=== PATIENT | female | born 1955 | race Caucasian/White ===

== ENCOUNTER 2019-08-30 11:21 | Outpatient (CLI) | payer MEDICARE, OTHER, SELFPAY ==
[2019-08-30 11:40] LABS: Basophils Percent Auto 0.3 % (0.2-1.2); Eosinophils Absolute Auto 0.1 K/mm3 (0-0.3); Eosinophils Percent Auto 0.8 % (0-4.4); Hematocrit 41.3 % (37.0-47.0); Hemoglobin 13.5 g/dL (12.0-15.0); Immature Granulocyte Absolute 0.03 K/mm3 (0.00-0.031); Immature Granulocyte Percent A 0.3 % (0-0.5); Lymphocytes Absolute Auto 1.93 K/mm3 (0.9-3.2); Mean Corpuscular HGB Conc 32.7 g/dl (32-36); Mean Corpuscular Volume 91.8 fl (80-100); Mean Platelet Volume 11.3 fl (7.4-10.4); Monocytes Absolute Auto 0.6 K/mm3 (0.1-0.6); Neutrophils Absolute Auto 6.6 K/mm3 (1.3-6.7); Neutrophils Percent Auto 71.6 % (45.5-73.1); Platelet Count Result 257 k/mm3 (150-375); Red Cell Distribution Width 13.4 % (11.5-14.5); White Blood Count 9.2 K/mm3 (4.5-10.0)
[2019-08-30 12:28] LABS: Alanine Aminotransferase 16 U/L (4-35); Alkaline Phosphatase 74 U/L (38-126); Aspartate Amino Transferase 18 U/L (14-36); Bilirubin,Total 0.2 mg/dL (0.2-1.3); Blood Urea Nitrogen 16 mg/dL (7-17); Carbon Dioxide 26 mmol/L (22-30); Chloride 103 mmol/L (98-107); Estimated Glomerular Filt Rate > 60; Glucose 160 mg/dL (65-105); Sodium 139 mmol/L (137-145)
[2019-09-03 12:27] LABS: CA 27.29 14 U/mL (<38)
== END 2019-08-30 11:22 | disposition home or self-care (01) ==
PROVIDERS: Visit Provider Internal Medicine Hematology & Oncology
DX: C50.912 Malignant neoplasm of unspecified site of left female breast (principal); Z17.0 Estrogen receptor positive status [ER+]
CPT/HCPCS: 36415; 80053; 85025; 86300

== ENCOUNTER 2020-02-28 11:59 | Outpatient (CLI) | payer MEDICARE, OTHER, SELFPAY ==
[2020-02-28 12:25] LABS: Basophils Percent Auto 0.3 % (0.2-1.2); Eosinophils Absolute Auto 0.1 K/mm3 (0-0.3); Eosinophils Percent Auto 0.7 % (0-4.4); Hematocrit 42.4 % (37.0-47.0); Immature Granulocyte Absolute 0.02 K/mm3 (0.00-0.031); Immature Granulocyte Percent A 0.2 % (0-0.5); Lymphocytes Percent Auto 23.4 % (18.3-44.2); Mean Corpuscular Hemoglobin 30.1 pg (26-34); Mean Corpuscular Volume 91.2 fl (80-100); Mean Platelet Volume 11.7 fl (7.4-10.4); Monocytes Absolute Auto 0.5 K/mm3 (0.1-0.6); Monocytes Percent Auto 5.3 % (2.6-8.5); Neutrophils Absolute Auto 6.6 K/mm3 (1.3-6.7); Neutrophils Percent Auto 70.1 % (45.5-73.1); Platelet Count Result 256 k/mm3 (150-375); Red Blood Count 4.65 M/mm3 (4.2-5.4); Red Cell Distribution Width 12.8 % (11.5-14.5); White Blood Count 9.4 K/mm3 (4.5-10.0)
[2020-02-28 15:20] LABS: Alanine Aminotransferase 18 U/L (4-35); Albumin Level 4.3 g/dL (3.5-5.1); Alkaline Phosphatase 65 U/L (38-126); Anion Gap 9 mmol/L (8-16); Aspartate Amino Transferase 23 U/L (14-36); Bilirubin,Total 0.5 mg/dL (0.2-1.3); Blood Urea Nitrogen 21 mg/dL (7-17); Calcium 9.7 mg/dL (8.4-10.2); Carbon Dioxide 31 mmol/L (22-30); Chloride 97 mmol/L (98-107); Estimated Glomerular Filt Rate > 60; Glucose 112 mg/dL (65-105); Potassium 4.1 mmol/L (3.4-5.0); Sodium 137 mmol/L (137-145)
[2020-03-04 13:45] LABS: CA 27.29 17 U/mL (<38)
== END 2020-02-28 12:00 | disposition home or self-care (01) ==
LOC: ANHLAB 12:02
PROVIDERS: PCP Obstetrics & Gynecology; Visit Provider Internal Medicine Hematology & Oncology
DX: C50.212 Malignant neoplasm of upper-inner quadrant of left female breast (principal)
CPT/HCPCS: 36415; 80053; 85025; 86300

== ENCOUNTER 2020-09-02 09:24 | Outpatient (CLI) | payer MEDICARE, OTHER, SELFPAY ==
[2020-09-02 09:45] LABS: Basophils Percent Auto 0.2 % (0.2-1.2); Eosinophils Absolute Auto 0.1 K/mm3 (0-0.3); Eosinophils Percent Auto 0.7 % (0-4.4); Hematocrit 39.8 % (37.0-47.0); Hemoglobin 13.1 g/dL (12.0-15.0); Immature Granulocyte Absolute 0.04 K/mm3 (0.00-0.031); Immature Granulocyte Percent A 0.5 % (0-0.5); Lymphocytes Absolute Auto 1.27 K/mm3 (0.9-3.2); Lymphocytes Percent Auto 15.4 % (18.3-44.2); Mean Corpuscular HGB Conc 32.9 g/dl (32-36); Mean Corpuscular Hemoglobin 30.2 pg (26-34); Mean Corpuscular Volume 91.7 fl (80-100); Mean Platelet Volume 11.7 fl (7.4-10.4); Monocytes Absolute Auto 0.5 K/mm3 (0.1-0.6); Monocytes Percent Auto 6.2 % (2.6-8.5); Neutrophils Absolute Auto 6.4 K/mm3 (1.3-6.7); Platelet Count Result 249 k/mm3 (150-375); Red Blood Count 4.34 M/mm3 (4.2-5.4); Red Cell Distribution Width 13.1 % (11.5-14.5); White Blood Count 8.3 K/mm3 (4.5-10.0)
[2020-09-02 09:49] LABS: Blood Urea Nitrogen 19 mg/dL (8-26); Carbon Dioxide 29 mmol/L (22-30); Chloride 100 mmol/L (98-109); Estimated Glomerular Filt Rate 45; Glucose 128 mg/dL (70-105); Potassium 3.8 mmol/L (3.5-4.9); Sodium 143 mmol/L (138-146)
[2020-09-02 12:22] LABS: Alanine Aminotransferase 17 U/L (4-35); Albumin Level 4.1 g/dL (3.5-5.1); Alkaline Phosphatase 59 U/L (38-126); Anion Gap 9 mmol/L (8-16); Aspartate Amino Transferase 19 U/L (14-36); Bilirubin,Total 0.4 mg/dL (0.2-1.3); Blood Urea Nitrogen 19 mg/dL (7-17); Calcium 10.1 mg/dL (8.4-10.2); Carbon Dioxide 29 mmol/L (22-30); Chloride 101 mmol/L (98-107); Estimated Glomerular Filt Rate 50; Glucose 124 mg/dL (65-105); Sodium 139 mmol/L (137-145)
[2020-09-09 08:56] LABS: CA 15-3 7 U/mL (<32)
== END 2020-09-02 09:25 | disposition home or self-care (01) ==
LOC: ANHLAB 09:30
PROVIDERS: Visit Provider Internal Medicine Hematology & Oncology
DX: C50.212 Malignant neoplasm of upper-inner quadrant of left female breast (principal)
CPT/HCPCS: 36415; 80048; 80053; 85025; 86300

== ENCOUNTER 2021-02-24 09:51 | Outpatient (CLI) | payer MEDICARE, OTHER, SELFPAY ==
[2021-02-24 10:23] LABS: Basophils Percent Auto 0.2 % (0.2-1.2); Eosinophils Absolute Auto 0.1 K/mm3 (0-0.3); Eosinophils Percent Auto 0.9 % (0-4.4); Hematocrit 37.7 % (37.0-47.0); Hemoglobin 12.1 g/dL (12.0-15.0); Immature Granulocyte Absolute 0.02 K/mm3 (0.00-0.031); Immature Granulocyte Percent A 0.2 % (0-0.5); Lymphocytes Absolute Auto 1.63 K/mm3 (0.9-3.2); Lymphocytes Percent Auto 19.2 % (18.3-44.2); Mean Corpuscular HGB Conc 32.1 g/dl (32-36); Mean Corpuscular Hemoglobin 30.3 pg (26-34); Mean Corpuscular Volume 94.5 fl (80-100); Mean Platelet Volume 11.7 fl (7.4-10.4); Monocytes Absolute Auto 0.5 K/mm3 (0.1-0.6); Monocytes Percent Auto 5.9 % (2.6-8.5); Neutrophils Absolute Auto 6.2 K/mm3 (1.3-6.7); Neutrophils Percent Auto 73.6 % (45.5-73.1); Platelet Count Result 257 k/mm3 (150-375); Red Blood Count 3.99 M/mm3 (4.2-5.4); Red Cell Distribution Width 12.7 % (11.5-14.5); White Blood Count 8.5 K/mm3 (4.5-10.0)
[2021-02-24 11:12] LABS: Alanine Aminotransferase 20 U/L (4-35); Albumin Level 4.1 g/dL (3.5-5.1); Alkaline Phosphatase 52 U/L (38-126); Anion Gap 12 mmol/L (8-16); Aspartate Amino Transferase 26 U/L (14-36); Bilirubin,Total 0.4 mg/dL (0.2-1.3); Blood Urea Nitrogen 16 mg/dL (7-17); Calcium 8.8 mg/dL (8.4-10.2); Carbon Dioxide 27 mmol/L (22-30); Chloride 100 mmol/L (98-107); Estimated Glomerular Filt Rate > 60; Glucose 122 mg/dL (65-110); Sodium 139 mmol/L (137-145)
[2021-02-27 15:13] LABS: CA 15-3 6 U/mL (<32)
== END 2021-02-24 09:52 | disposition home or self-care (01) ==
LOC: ANHLAB 09:54
PROVIDERS: Visit Provider Internal Medicine Hematology & Oncology
DX: R79.89 Other specified abnormal findings of blood chemistry (principal); C50.212 Malignant neoplasm of upper-inner quadrant of left female breast; Z17.0 Estrogen receptor positive status [ER+]
CPT/HCPCS: 36415; 80053; 84443; 85025; 86300

== ENCOUNTER 2021-10-18 11:57 | Outpatient (CLI) | payer MEDICARE, OTHER, SELFPAY ==
[2021-10-18 12:18] LABS: Basophils Percent Auto 0.3 % (0.2-1.2); Eosinophils Absolute Auto 0.1 K/mm3 (0-0.3); Eosinophils Percent Auto 1.1 % (0-4.4); Hematocrit 37.9 % (37.0-47.0); Hemoglobin 12.4 g/dL (12.0-15.0); Immature Granulocyte Absolute 0.03 K/mm3 (0.00-0.031); Immature Granulocyte Percent A 0.3 % (0-0.5); Lymphocytes Absolute Auto 2.02 K/mm3 (0.9-3.2); Lymphocytes Percent Auto 20.3 % (18.3-44.2); Mean Corpuscular HGB Conc 32.7 g/dl (32-36); Mean Corpuscular Hemoglobin 29.9 pg (26-34); Mean Corpuscular Volume 91.3 fl (80-100); Mean Platelet Volume 11.1 fl (7.4-10.4); Monocytes Absolute Auto 0.6 K/mm3 (0.1-0.6); Monocytes Percent Auto 6.4 % (2.6-8.5); Neutrophils Absolute Auto 7.1 K/mm3 (1.3-6.7); Neutrophils Percent Auto 71.6 % (45.5-73.1); Platelet Count Result 212 k/mm3 (150-375); Red Blood Count 4.15 M/mm3 (4.2-5.4); Red Cell Distribution Width 12.5 % (11.5-14.5)
[2021-10-18 14:37] LABS: Alanine Aminotransferase 17 U/L (6-35); Albumin Level 4.4 g/dL (3.5-5.1); Alkaline Phosphatase 52 U/L (38-126); Anion Gap 13 mmol/L (8-16); Aspartate Amino Transferase 20 U/L (14-36); Bilirubin,Total 0.4 mg/dL (0.2-1.3); Blood Urea Nitrogen 23 mg/dL (7-17); Calcium 8.9 mg/dL (8.4-10.2); Carbon Dioxide 31 mmol/L (22-30); Chloride 93 mmol/L (98-107); Estimated Glomerular Filt Rate 50; Glucose 108 mg/dL (65-110); Potassium 3.8 mmol/L (3.4-5.0); Sodium 137 mmol/L (137-145)
[2021-10-23 06:35] LABS: CA 15-3 8 U/mL (<32)
== END 2021-10-18 11:58 | disposition home or self-care (01) ==
LOC: ANHLAB 12:00
PROVIDERS: Visit Provider Internal Medicine Hematology & Oncology
DX: I50.32 Chronic diastolic (congestive) heart failure (principal); I48.0 Paroxysmal atrial fibrillation; I10 Essential (primary) hypertension; E78.2 Mixed hyperlipidemia; C50.212 Malignant neoplasm of upper-inner quadrant of left female breast
CPT/HCPCS: 36415; 80053; 85025; 86300

== ENCOUNTER 2022-08-31 10:30 | Outpatient (CLI) | payer MEDICARE, OTHER, SELFPAY ==
[2022-08-31 10:45] LABS: Basophils Percent Auto 0.5 % (0.2-1.2); Eosinophils Absolute Auto 0.2 K/mm3 (0-0.3); Eosinophils Percent Auto 2.9 % (0-4.4); Hematocrit 38.4 % (37.0-47.0); Hemoglobin 12.3 g/dL (12.0-15.0); Immature Granulocyte Absolute 0.01 K/mm3 (0.00-0.031); Immature Granulocyte Percent A 0.1 % (0-0.5); Lymphocytes Absolute Auto 2.23 K/mm3 (0.9-3.2); Lymphocytes Percent Auto 30.5 % (18.3-44.2); Mean Corpuscular Hemoglobin 29.9 pg (26-34); Mean Corpuscular Volume 93.4 fl (80-100); Mean Platelet Volume 10.9 fl (7.4-10.4); Monocytes Absolute Auto 0.5 K/mm3 (0.1-0.6); Monocytes Percent Auto 6.6 % (2.6-8.5); Neutrophils Absolute Auto 4.4 K/mm3 (1.3-6.7); Neutrophils Percent Auto 59.4 % (45.5-73.1); Platelet Count Result 232 k/mm3 (150-375); Red Blood Count 4.11 M/mm3 (4.2-5.4); Red Cell Distribution Width 12.6 % (11.5-14.5); White Blood Count 7.3 K/mm3 (4.5-10.0)
[2022-08-31 14:41] LABS: Alanine Aminotransferase 20 U/L (6-35); Alkaline Phosphatase 45 U/L (38-126); Anion Gap 4 mmol/L (8-16); Aspartate Amino Transferase 21 U/L (14-36); Bilirubin,Total 0.3 mg/dL (0.2-1.3); Blood Urea Nitrogen 20 mg/dL (7-17); Calcium 8.4 mg/dL (8.4-10.2); Carbon Dioxide 35 mmol/L (22-30); Chloride 98 mmol/L (98-107); Estimated Glomerular Filt Rate 55; Glucose 103 mg/dL (65-110); Potassium 4.1 mmol/L (3.4-5.0); Sodium 137 mmol/L (137-145)
[2022-09-03 05:56] LABS: CA 15-3 6 U/mL (<32)
== END 2022-08-31 10:31 | disposition home or self-care (01) ==
LOC: ANHLAB 10:32
PROVIDERS: Visit Provider Internal Medicine Hematology & Oncology
DX: C50.212 Malignant neoplasm of upper-inner quadrant of left female breast (principal)
CPT/HCPCS: 36415; 80053; 85025; 86300

== ENCOUNTER 2023-09-04 10:52 | Outpatient (RCR) | payer MEDICARE, OTHER, SELFPAY ==
[2023-09-04 11:09] LABS: Basophils Percent Auto 0.7 % (0.2-1.2); Eosinophils Percent Auto 0.7 % (0-4.4); Hematocrit 39.3 % (37.0-47.0); Hemoglobin 12.5 g/dL (12.0-15.0); Immature Granulocyte Absolute 0.01 K/mm3 (0.00-0.031); Immature Granulocyte Percent A 0.2 % (0-0.5); Lymphocytes Absolute Auto 1.79 K/mm3 (0.9-3.2); Lymphocytes Percent Auto 29.5 % (18.3-44.2); Mean Corpuscular HGB Conc 31.8 g/dl (32-36); Mean Corpuscular Hemoglobin 28.7 pg (26-34); Mean Corpuscular Volume 90.1 fl (80-100); Mean Platelet Volume 11.7 fl (7.4-10.4); Monocytes Absolute Auto 0.4 K/mm3 (0.1-0.6); Monocytes Percent Auto 7.1 % (2.6-8.5); Neutrophils Absolute Auto 3.8 K/mm3 (1.3-6.7); Neutrophils Percent Auto 61.8 % (45.5-73.1); Platelet Count Result 249 k/mm3 (150-375); Red Blood Count 4.36 M/mm3 (4.2-5.4); Red Cell Distribution Width 13.3 % (11.5-14.5); White Blood Count 6.1 K/mm3 (4.5-10.0)
[2023-09-04 12:17] LABS: Alanine Aminotransferase 26 U/L (6-35); Albumin Level 4.6 g/dL (3.5-5.1); Alkaline Phosphatase 88 U/L (38-126); Anion Gap 12 mmol/L (4-12); Aspartate Amino Transferase 31 U/L (14-36); Bilirubin,Total 0.7 mg/dL (0.2-1.3); Blood Urea Nitrogen 16 mg/dL (7-17); Calcium 9.4 mg/dL (8.4-10.2); Carbon Dioxide 30 mmol/L (22-30); Chloride 94 mmol/L (98-107); Estimated Glomerular Filt Rate > 60; Glucose 114 mg/dL (65-110); Potassium 3.9 mmol/L (3.4-5.0); Sodium 136 mmol/L (137-145)
[2023-09-06 14:58] LABS: CA 15-3 9 U/mL (<32)
== END 2023-12-03 23:59 | disposition home or self-care (01) ==
LOC: ANHLAB 10:52
PROVIDERS: PCP Family Medicine; Visit Provider Internal Medicine Hematology & Oncology
DX: C50.212 Malignant neoplasm of upper-inner quadrant of left female breast (principal)
CPT/HCPCS: 36415; 80053; 85025; 86300

== ENCOUNTER 2024-09-04 09:59 | Outpatient (CLI) | payer MEDICARE, OTHER, SELFPAY ==
--- OUTSIDE RECORDS SUMMARY | 2024-09-04 10:11 | XMS_ITS | Referral Summary ---
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 Name Role Phone Pavan Dooley MD Primary Care Provider [phone] Lita Whitlock MD Unavailable [phone] Abhay Garcia DPM Unavailable [phone] Juan Dumont MD Unavailable [phone] Encounters Date Type Department Care Team Description 06/28/2024 Telephone [facility] Medical [facility] Family Medicine at [address] [place] [address] Pavan Dooley MD Labs Only 06/26/2024 Results Follow-Up [facility] Family Medicine at [address] [place] [phone] Pavan Dooley MD TSH, Comprehensive metabolic panel, CBC with auto differential, Additional followed-up results: 4 06/26/2024 11:10 AM CDT Lab [facility] Office [address] [place] [address] [address] [place], [place] [id number] Encounter for annual health examination; Type 2 diabetes mellitus without complication, without long-term current use of insulin (HCC) 06/26/2024 10:15 AM CDT Office Visit [facility] Family Medicine at [address] [place] [phone] Pavan Dooley MD Medicare annual wellness visit, subsequent (Primary Dx); Encounter for annual health examination; Type 2 diabetes mellitus without complication, without long-term current use of insulin (HCC); Mixed hyperlipidemia; Essential hypertension; Other persistent atrial fibrillation (HCC); Chronic diastolic congestive heart failure (HCC); Hypothyroidism, unspecified type 06/07/2024 Orders Only [facility] Family Medicine at [address] [place] [phone] Pavan Dooley MD 06/07/2024 Orders Only [facility] Medicine at [address] [place] [phone] Pavan Dooley MD 06/06/2024 Orders Only [facility] Medicine at [address] [place] [phone] Pavan Dooley MD from Last 3 Months Allergies Active Allergy Reactions Criticality Noted Date Comments Amoxicillin Rash Medium 01/06/2023 Amoxicillin-Pot Clavulanate Rash Medium 08/02/19 18 Aspirin Anaphylaxis High 02/23/2005 anaphylaxis Nsaids (Non-Steroidal Anti-Inflammatory Drug) Unknown 03/02/2016 Pepper Unknown 03/10/2016 Pepper (Genus Capsicum) Anaphylaxis High 03/10/2016 Salicylates Unknown 03/02/2016 Vancomycin Rash,Unknown Medium 07/19/2016 Medications calcium carbonate (OS-CAROLYN) 1,500 mg (600 mg of elemental calcium) tablet Take 600 mg by mouth daily 07/29/19 18 Active multivitamin tablet Take 1 tablet by mouth daily Active ascorbic acid (ascorbic acid with rodney hips) 500 mg tablet,chewable Take 1 tablet/chew tab (500 mg total) by mouth daily Active biotin 1 mg capsule Take 1,000 mcg by mouth daily Active ferrous sulfate ER 324 mg (65 mg iron) EC tabletIndications: Iron Deficiency Anemia Take 65 mg by mouth daily with breakfast Active EPINEPHrine 0.3 mg/0.3 mL auto-injection syringeIndications :Anaphylaxis Inject 0.3 mL (0.3 mg total) into the muscle as instructed as needed for anaphylaxis 0.3 mL 1 06/16/19 23 Active furosemide (LASIX) 20 mg tablet Take 1 tablet (20 mg total) by mouth daily 04/01/19 24 Active sotaloL (BETAPACE) 80 mg tablet Take 1 tablet (80 mg total) by mouth 2 (two) times a day 07/13/19 24 Active spironolactone (ALDACTONE) 25 mg tabletIndications: Chronic diastolic congestive heart failure (HCC) Take 1 tablet (25 mg total) by mouth 2 (two) times a day 180 tablet 1 12/06/19 24 Active fexofenadine (KARINA) 180 mg tablet Take 1 tablet (180 mg total) by mouth daily 90 tablet 3 12/19/19 24 025 Active omeprazole (PriLOSEC) 20 mg capsuleIndications :Gastroesophageal reflux disease without esophagitis Take 1 capsule (20 mg total) by mouth daily 90 capsule 3 03/19/19 25 Active metFORMIN (GLUCOPHAGE) 850 mg tabletIndications: Type 2 diabetes mellitus without complication, without long-term current use of insulin ([facility]) Take 1 tablet (850 mg total) by mouth 2 (two) times a day with meals 180 tablet 3 06/27/19 25 026 Active empagliflozin (JARDIANCE) 25 mg tabletIndications: heart failure associated with type 2 diabetes mellitus Take 1 tablet (25 mg total) by mouth daily 90 tablet 3 06/27/19 25 026 Active atorvastatin (LIPITOR) 40 mg tabletIndications: Mixed hyperlipidemia Take 1 tablet (40 mg total) by mouth daily 90 tablet 3 06/27/19 25 026 Active amLODIPine (NORVASC) 5 mg tabletIndications: Essential hypertension Take 1 tablet (5 mg total) by mouth daily 30 tablet 06/27/19 25 026 Active Eliquis 5 mg tabletIndications: Other persistent atrial fibrillation (HCC),Chronic diastolic congestive heart failure (HCC) Take 1 tab twice a day 180 tablet 2 06/27/19 25 Active fenofibrate (TRIGLIDE) 160 mg tabletIndications: Mixed hyperlipidemia Take 1 tablet (160 mg total) by mouth daily 90 tablet 06/27/19 25 Active losartan (COZAAR) 100 mg tabletIndications: Essential hypertension Take 1 tablet (100 mg total) by mouth daily 30 tablet 11 06/27/19 25 026 Active levothyroxine (SYNTHROID) 25 mcg tabletIndications: Hypothyroidism, unspecified type Take 1 tablet (25 mcg total) by mouth daily 90 tablet 3 06/27/19 25 026 Active Active Problems Problem Noted Date Diagnosed Date Other thrombophilia 06/26/2024 CAP (community acquired pneumonia) 08/19/2023 Obstructive sleep apnea 08/19/2023 Smoking greater than 30 pack years 08/19/2023 Sepsis with acute hypoxic re spiratory failure without septic shock, due to unspecified organism 08/16/2023 Paroxysmal atrial fibrillation 07/24/2023 Class 2 severe obesity due t o excess calories with serious comorbidity and body mass index (BMI) of 35.0 to 35.9 in adult 04/03/2023 Assessment & Plan (07/24/2023 9:24 AM CDT): Recommended aggressive Lifestyle modification and weight loss for improving overall weight related health conditions. Follow up in 1 or 3 months for continuing Lifestyle Medicine education and management visit. Recommend Lifestyle/Nutrition/Weight Loss Seminar on every other Tuesdays @ 5pm. Abnormal weight gain 12/09/2022 Class 1 obesity due to exces s calories with serious comorbidity and body mass index (BMI) of 33.0 to 33.9 in adult 09/07/2022 Assessment & Plan (12/06/2023 11:02 AM CDT): Recommended aggressive Lifestyle modification and weight loss for improving overall weight related health conditions. Follow up in 1 or 3 months for continuing Lifestyle Medicine education and management visit. Recommend Lifestyle/Nutrition/Weight Loss Seminar on every other Tuesdays @ 5pm. Hypothyroidism 06/15/2022 Need for hepatitis C screening test 03/14/2022 Left wrist pain 05/24/2021 Gastroesophageal reflux disease without esophagi tis 04/21/2021 Injury of left wrist 04/19/2021 Mixed hyperlipidemia 07/31/2019 Type 2 diabetes mellitus wit hout complication, without long-term current use of insulin 07/31/2019 Other persistent atrial fibrillation 04/24/2019 Essential hypertension 04/24/2019 Medicare annual wellness visit, subsequent 04/23 Assessment & Plan (06/26/2024 10:44 AM CDT): Patient here for annual Medicare wellness visit and for review of complete medical problem list. All the elements of the plan were completed as outlined by CMS. A copy of the prevention plan was given to the patient. I reviewed Medicare Wellness Questionnaire (other physicians involved in care, depression screen, advanced directives), cognitive/memory, and functional assessment. Forms scanned in progress notes. I reviewed and updated the complete problem list, medication list, family history, and immunization records with the patient. I provided preventive counseling and early detection interventions to the patient through health maintenance update and summary of today's office visit. Personalized Prevention Plan Services (PPPS): Immunization: [id number]: Risk and benefits discussed with patient. Patient voiced understandings; and refused. [id number]: ordered today. Influenza: Risk and benefits discussed with patient. Patient voiced understandings; and refused. HepatitisB: Not Applicable. Tetanus: UTD 2019 Shingles: Risk and benefits discussed with patient. Patient voiced understandings; and refused. Cancer Screening: Mammogram: UTD. and Annually January . PAP Smear: Not Applicable. Prostate Cancer Screening: UTD. Colorectal Cancer Screening: Dr. Aguirre. [facility] Lung Cancer Screening: Not Applicable. Others: Diet: Lifestyle education regarding diet discussed. Exercise: Encouraged regular daily exercise. Medication Use: Aspirin use discussion. DEXA Scan: 04/2019.Order for today. Glaucoma Screening: Recommended Annually. Audio Screen ordered? No Diabetes: UTD. Annual Labs: UTD. Abdominal Aortic Aneurysm Screening: Not Applicable. HIV Screening: Not Applicable. Smoking cessation Counselling: Not Applicable. Subsequent Annual Wellness Visit: Annually Assessment & Plan (06/23/2023 10:26 AM CDT): Patient here for annual Medicare wellness visit and for review of complete medical problem list. All the elements of the plan were completed as outlined by CMS. A copy of the prevention plan was given to the patient. I reviewed Medicare Wellness Questionnaire (other physicians involved in care, depression screen, advanced directives), cognitive/memory, and functional assessment. Forms scanned in progress notes. I reviewed and updated the complete problem list, medication list, family history, and immunization records with the patient. I provided preventive counseling and early detection interventions to the patient through health maintenance update and summary of today's office visit. Personalized Prevention Plan Services (PPPS): Immunization: [id number]: Risk and benefits discussed with patient. Patient voiced understandings; and refused. [id number]: ordered today. Influenza: Risk and benefits discussed with patient. Patient voiced understandings; and refused. HepatitisB: Not Applicable. Tetanus: 2019 Shingles: Risk and benefits discussed with patient. Patient voiced understandings; and refused. Cancer Screening: Mammogram: UTD. and Annually January . PAP Smear: Not Applicable. Prostate Cancer Screening: UTD. Colorectal Cancer Screening: Dr. Aguirre. [facility] Lung Cancer Screening: Not Applicable. Others: Diet: Lifestyle education regarding diet discussed. Exercise: Encouraged regular daily exercise. Medication Use: Aspirin use discussion. DEXA Scan: 04/2019.Order for today. Glaucoma Screening: Recommended Annually. Audio Screen ordered? No Diabetes: UTD. Annual Labs: UTD. Abdominal Aortic Aneurysm Screening: Not Applicable. HIV Screening: Not Applicable. Smoking cessation Counselling: Not Applicable. Subsequent Annual Wellness Visit: Annually Assessment & Plan (06/15/2022 10:02 AM CDT): Patient here for annual Medicare wellness visit and for review of complete medical problem list. All the elements of the plan were completed as outlined by CMS. A copy of the prevention plan was given to the patient. I reviewed Medicare Wellness Questionnaire (other physicians involved in care, depression screen, advanced directives), cognitive/memory, and functional assessment. Forms scanned in progress notes. I reviewed and updated the complete problem list, medication list, family history, and immunization records with the patient. I provided preventive counseling and early detection interventions to the patient through health maintenance update and summary of today's office visit. Personalized Prevention Plan Services (PPPS): Immunization: [id number]: Risk and benefits discussed with patient. Patient voiced understandings; and refused. [id number]: ordered today. Influenza: Risk and benefits discussed with patient. Patient voiced understandings; and refused. HepatitisB: Not Applicable. Tetanus: 2019 Shingles: Risk and benefits discussed with patient. Patient voiced understandings; and refused. Cancer Screening: Mammogram: UTD. and Annually January . PAP Smear: Not Applicable. Prostate Cancer Screening: UTD. Colorectal Cancer Screening: Dr. Aguirre. [facility] Lung Cancer Screening: Not Applicable. Others: Diet: Lifestyle education regarding diet discussed. Exercise: Encouraged regular daily exercise. Medication Use: Aspirin use discussion. DEXA Scan: 04/2019.Order for today. Glaucoma Screening: Recommended Annually. Audio Screen ordered? No Diabetes: UTD. Annual Labs: UTD. Abdominal Aortic Aneurysm Screening: Not Applicable. HIV Screening: Not Applicable. Smoking cessation Counselling: Not Applicable. Subsequent Annual Wellness Visit: Annually Assessment & Plan (06/15/2021 10:53 AM CDT): Patient here for annual Medicare wellness visit and for review of complete medical problem list. All the elements of the plan were completed as outlined by CMS. A copy of the prevention plan was given to the patient. I reviewed Medicare Wellness Questionnaire (other physicians involved in care, depression screen, advanced directives), cognitive/memory, and functional assessment. Forms scanned in progress notes. I reviewed and updated the complete problem list, medication list, family history, and immunization records with the patient. I provided preventive counseling and early detection interventions to the patient through health maintenance update and summary of today's office visit. Personalized Prevention Plan Services (PPPS): Immunization: [id number]: Risk and benefits discussed with patient. Patient voiced understandings; and refused. [id number]: ordered today. Influenza: Risk and benefits discussed with patient. Patient voiced understandings; and refused. HepatitisB: Not Applicable. Tetanus: UTD 2019 Shingles: Risk and benefits discussed with patient. Patient voiced understandings; and refused. Cancer Screening: Mammogram: UTD. and Annually January . PAP Smear: Not Applicable. Prostate Cancer Screening: UTD. Colorectal Cancer Screening: Dr. Aguirre. [facility] Lung Cancer Screening: Not Applicable. Others: Diet: Lifestyle education regarding diet discussed. Exercise: Encouraged regular daily exercise. Medication Use: Aspirin use discussion. DEXA Scan: 04/2019.Order for today. Glaucoma Screening: Recommended Annually. Audio Screen ordered? No Diabetes: UTD. Annual Labs: UTD. Abdominal Aortic Aneurysm Screening: Not Applicable. HIV Screening: Not Applicable. Smoking cessation Counselling: Not Applicable. Subsequent Annual Wellness Visit: Annually Assessment & Plan (04/29/2020 9:42 AM PURIFICATION DIRECTOR): Patient here for annual Medicare wellness visit and for review of complete medical problem list. All the elements of the plan were completed as outlined by CMS. A copy of the prevention plan was given to the patient. I reviewed Medicare Wellness Questionnaire (other physicians involved in care, depression screen, advanced directives), cognitive/memory, and functional assessment. Forms scanned in progress notes. I reviewed and updated the complete problem list, medication list, family history, and immunization records with the patient. I provided preventive counseling and early detection interventions to the patient through health maintenance update and summary of today's office visit. Personalized Prevention Plan Services (PPPS): Immunization: [id number]: Risk and benefits discussed with patient. Patient voiced understandings; and refused. [id number]: ordered today. Influenza: Risk and benefits discussed with patient. Patient voiced understandings; and refused. HepatitisB: Not Applicable. Tetanus: Ordered For Today. Shingles: Risk and benefits discussed with patient. Patient voiced understandings; and refused. Cancer Screening: Mammogram: UTD. and Annually January . PAP Smear: Not Applicable. Prostate Cancer Screening: UTD. Colorectal Cancer Screening: Dr. Aguirre. UTD. Lung Cancer Screening: Not Applicable. Others: Diet: Lifestyle education regarding diet discussed. Exercise: Encouraged regular daily exercise. Medication Use: Aspirin use discussion. DEXA Scan: 04/2019. Repeat every two years. Glaucoma Screening: Recommended Annually. Audio Screen ordered? No Diabetes: UTD. Annual Labs: UTD. Abdominal Aortic Aneurysm Screening: Not Applicable. HIV Screening: Not Applicable. Smoking cessation Counselling: Not Applicable. Subsequent Annual Wellness Visit: Annually Assessment & Plan (04/24/2019 10:02 AM PURIFICATION DIRECTOR): Patient here for annual Medicare wellness visit and for review of complete medical problem list. All the elements of the plan were completed as outlined by CMS. A copy of the prevention plan was given to the patient. I reviewed Medicare Wellness Questionnaire (other physicians involved in care, depression screen, advanced directives), cognitive/memory, and functional assessment. Forms scanned in progress notes. I reviewed and updated the complete problem list, medication list, family history, and immunization records with the patient. I provided preventive counseling and early detection interventions to the patient through health maintenance update and summary of today's office visit. Personalized Prevention Plan Services (PPPS): Immunization: [id number]: Risk and benefits discussed with patient. Patient voiced understandings; and refused. [id number]: Risk and benefits discussed with patient. Patient voiced understandings; and refused. Influenza: Risk and benefits discussed with patient. Patient voiced understandings; and refused. HepatitisB: Not Applicable. Tetanus: Ordered For Today. Shingles: Risk and benefits discussed with patient. Patient voiced understandings; and refused. Cancer Screening: Mammogram: UTD. and Annually January . PAP Smear: Not Applicable. Prostate Cancer Screening: UTD. Colorectal Cancer Screening: Not Applicable. Lung Cancer Screening: Not Applicable. Others: Diet: Lifestyle education regarding diet discussed. Exercise: Encouraged regular daily exercise. Medication Use: Aspirin use discussion. DEXA Scan: Ordered For Today. Glaucoma Screening: Recommended Annually. Audio Screen ordered? No Diabetes: UTD. Annual Labs: UTD. Abdominal Aortic Aneurysm Screening: Not Applicable. HIV Screening: Not Applicable. Smoking cessation Counselling: Not Applicable. Subsequent Annual Wellness Visit: Annually Chronic diastolic congestive heart failure 07/15 Breast cancer, female 02/26/2016 Overview (04/24/2019): 2017. Lumpectomy. Chemo. Radiation. On Tamixifen. Annual Mammogram schedule. Remission. Immunizations Immunization Administration Dates Next Due Influenza, Quadrivalent, Hig h Dose, Preservative Free, Intrr 10/21/2022(Deferred: Patient decision) Influenza, Unspecified 03/10/2023(Deferr ed: Patient decision),10/21/2021(Deferred: Patient decision),10/21/2021(Deferred: Patient decision),06/21/2016,06/16/2016, 017,04/12/2016,03/10/2016 Pneumococcal Conjugate PCV 13 06/15/2021 Pneumococcal Conjugate Pcv20 06/23/2023 Td, adsorbed 05/31/2002 Tdap 04/24/2019 [facility]OST[facility] 06/21/2016, 7,05/26/2016,2016,03/10/2016,09/05/2014 Social History Tobacco Use Types Packs/Day Years Used Date Smoking Tobacco: Former Cigarettes 3 10.6 1 988 - 09/20/1997 Vaping Started: 11/29 Smokeless Tobacco: Never Tobacco Cessation:Counseling Given: Not Answered Alcohol Use Standard Drinks/Week Comments Yes 0 (1 standard drink = 0.6 oz pur e alcohol) [facility] Utilities Answer Date Recorded In the past 12 months has th e electric, gas, oil, or water company threatened to shut off services in your home? No 08/17/2023 Social Connection and Isolat ion Panel [NHANES] Answer Date Recorded In a typical week, how many times do you talk on the phone with family, friends, or neighbors? More than three times a week 08/17/2023 How often do you get togethe r with friends or relatives? More than three times a week 08/17/2023 How often do you attend chur ch or religion services? Never 08/17/2023 Do you belong to any clubs o r organizations such as mosque groups, unions, fraternal or athletic groups, or school groups? No 08/17/2023 How often do you attend meet ings of the clubs or organizations you belong to? Never 08/17/2023 Are you , , di vorced, , never , or living with a partner? 08/17/2023 AUDIT-C Answer Date Recorded Q1: How often do you have a drink containing alcohol? Never 06/26/2024 Q2: How many drinks containi ng alcohol do you have on a typical day when you are drinking? Patient does not drink Q3: How often do you have si x or more drinks on one occasion? Never 06/26/2024 Overall Financial Resource Strain (CARDIA) Answe r Date Recorded How hard is it for you to pa y for the very basics like food, housing, medical care, and heating? Not hard at all 08/17/2023 PHQ-2 Answer Date Recorded PHQ-2 Total Score (If total score is 3 or more points, staff should administer the PHQ-9) 0 06/26/2024 Hunger Vital Sign Answer Date Recorded Within the past 12 months, y ou worried that your food would run out before you got the money to buy more. Never true 08/17/19 24 Within the past 12 months, t he food you bought just didn't last and you didn't have money to get more. Never true 08/17/2023 PRAPARE - Transportation Answer Date Re corded In the past 12 months, has l ack of transportation kept you from medical appointments or from getting medications? No 07/22 In the past 12 months, has l ack of transportation kept you from meetings, work, or from getting things needed for daily living? No 08/17/2023 PHQ-9 Answer Date Recorded PHQ-9 Total Score 0 06/26/2024 Housing Stability Vital Sign Answer Sawyer e Recorded In the last 12 months, was t here a time when you were not able to pay the mortgage or rent on time? No 08/17/2023 In the past 12 months, how m any times have you moved where you were living? 0 08/17/2023 At any time in the past 12 m [facility], were you homeless or living in a penitentiary (including now)? No 08/17/2023 Personal Safety Answer Date Recorded Have you ever been in or are you currently in a harmful physical or emotional relationship or is someone making you feel afraid or unsafe? Denies 08/16/2023 Comments No Sex and Gender Information Value Date Recorded Sex Assigned at Not on file Legal Sex Female 7:56 AM PURIFICATION DIRECTOR Gender Identity Not on file Sexual Orientation Not on file Last Filed Vital Signs Vital Sign Reading Time Taken Comments Blood Pressure 140/72 06/26/2024 10:28 AM CDT Pulse 92 06/26/2024 10:28 AM CDT Temperature 36.3 C (97.3 F) 06/26/2024 10:28 AM CDT Respiratory Rate 16 06/26/2024 10:2 8 AM CDT Oxygen Saturation 96% 06/26/2024 10: 28 AM CDT Inhaled Oxygen Concentration - - Weight 105.1 kg (231 lb 12.8 oz) 2024 10:28 AM CDT Height 177.8 cm (5' 10) 06/26/2024 10: 28 AM CDT Body Mass Index 33.26 06/26/2024 10:28 AM CDT Plan of Treatment Not on file Procedures Procedure Name Priority Date/Time Associated Diagnosis Comments EGFR Routine 06/26/2024 11:29 AM CDT Encounter for annual health examination DIFFERENTIAL AUTO Routine 06/26/2024 11: 29 AM CDT Encounter for annual health examination LIPID PANEL Routine 06/26/2024 11:29 AM CDT Encounter for annual health examination ALBUMIN CREATININE RATIO, URINE Routine 06/26/2024 11:29 AM CDT Type 2 diabetes mellitus without complication, without long-term current use of insulin (HCC) CBC WITH AUTO DIFFERENTIAL Routine 06/26/2024 11:29 AM CDT Encounter for annual health examination COMPREHENSIVE METABOLIC PANEL Routine 06/26/2024 11:29 AM CDT Encounter for annual health examination TSH Routine 06/26/2024 11:29 AM CDT Encounter for annual health examination POCT HEMOGLOBIN A1C Routine 06/26/2024 1 0:40 AM CDT Type 2 diabetes mellitus without complication, without long-term current use of insulin (HCC) DEXA AXIAL SKELETON BONE DENSITY 1 OR MORE SITES Schedule Routine, Read Routine (OP Routine) 05/29/2024 SCREENING MAMMOGRAM Schedule Routine, Read Routine (OP Routine) 05/29/2024 DIABETIC EYE EXAM Routine 03/29/2023 HEPATITIS C ANTIBODY Routine 12/02/2022 11:13 AM CDT Need for hepatitis C screening test COLONOSCOPY Routine 09/29/2021 from Last 3 Months or Most Recently Relevant to Health Maintenance Results * eGFR (06/26/2024 11:29 AM CDT) eGFR 73 >=60 mL/min/1. 73 m2 Comment: Interpretive Data Reference Interval Normal >/= 90 mL/min/1.73m2 Mildly decreased* 60 - 89 mL/min/1.73m2 Mildly to moderately decreased 45 - 59 mL/min/1.73m2 Moderately to severely decreased 30 - 44 mL/min/1.73m2 Severely decreased 15 - 29 mL/min/1.73m2 Kidney Failure < 15 mL/min/1.73m2 *Relative to young adult level Estimated glomerular filtration rate is determined by the 2020 CKD-EPI equation recommended by the National Kidney Foundation (A Unifying Approach to GFR Estimation: Recommendations of the NKF-ASK Task Force on Reassessing the Inclusion of Race in Diagnosing Kidney Disease, JASN 2020). The CKD-EPI equation should not be used for patients with unstable renal function and has not been validated in children and those over 70. Current interpretive data was last reviewed 2020. Blood 06/26/2024 11:2 9 AM CDT 06/26/2024 12:25 PM CDT Pavan Dooley MD LAB BLOOD ORDERABLES Final Resul t [facility] [address] Department [place] [address] * Differential, auto (06/26/2024 11:29 AM CDT) Pathologist [facility] Neutrophil abs 3.98 1.50 - 6.50 K/cumm Imm gran abs 0.01 0.00 - 0.10 K/cumm [facility] Lymphocyte abs 1.73 0.80 - 3.30 K/cumm [facility] Monocyte abs 0.45 0.20 - 0.80 K/cumm [facility] Eosinophil abs 0.04 0.00 - 0.50 K/cumm [facility] Basophil abs 0.03 0.00 - 0.10 K/cumm [facility] Neutrophil pct 63.8 % [facility] Comment: Interpretive Data Percent cell count reference ranges are not reported, since discordance with absolute values may lead to misinterpretation of CBC data. Current Interpretive Data was last revised on 2017. Imm gran pct 0.2 % [facility] Comment: Interpretive Data Percent cell count reference ranges are not reported, since discordance with absolute values may lead to misinterpretation of CBC data. Current Interpretive Data was last revised on 2017. Lymphocyte pct 27.7 % [facility] Comment: Interpretive Data Percent cell count reference ranges are not reported, since discordance with absolute values may lead to misinterpretation of CBC data. Current Interpretive Data was last revised on 2017. Monocyte pct 7.2 % [facility] Comment: Interpretive Data Percent cell count reference ranges are not reported, since discordance with absolute values may lead to misinterpretation of CBC data. Current Interpretive Data was last revised on 2017. Eosinophil pct 0.6 % [facility] Comment: Interpretive Data Percent cell count reference ranges are not reported, since discordance with absolute values may lead to misinterpretation of CBC data. Current Interpretive Data was last revised on 2017. Basophil pct 0.5 % [facility] Comment: Interpretive Data Percent cell count reference ranges are not reported, since discordance with absolute values may lead to misinterpretation of CBC data. Current Interpretive Data was last revised on 2017. Blood 06/26/2024 11:2 9 AM CDT 06/26/2024 12:27 PM CDT Pavan Dooley MD LAB BLOOD ORDERABLES Final Resul t [place] [address] [facility] Department [place] [address] * (ABNORMAL) CBC with auto differential (06/26/2024 11:29 AM CDT) WBC 6.24 3.80 - 9.90 K/cumm Hgb 12.5 11.9 - 15.5 g/dL [facility] Hct 38.8 35.6 - 45.5 % [facility] Plt 254 150 - 400 K/cumm [facility] MPV 12.4(H) 9.1 - 12.3 fL [facility] RBC 4.24 3.90 - 5.20 M/cumm [facility] MCV 91.5 81.3 - 96.4 fL [facility] MCH 29.5 27.1 - 33.3 pg [facility] MCHC 32.2(L) 32.3 - 35.7 g/dL [facility] RDW CV 12.8 11.1 - 14.9 % [facility] RDW SD 42.7 35.7 - 48.1 fL [facility] NRBC abs 0.00 0.00 - 0.01 K/cumm [facility] Blood 06/26/2024 11:2 9 AM CDT 06/26/2024 12:27 PM CDT Pavan Dooley MD LAB BLOOD ORDERABLES Final Resul t Performing Organization Address [facility] Co de Phone Number [address] [place] [address] * Albumin Creatinine Ratio, Urine (06/26/2024 11:29 AM CDT) Pathologist [facility] Albumin Ur <12.0 mg/L Comment: Note corrected result. Notified Shante [id number] on 06/28/2024 11:55:12 CDT by [id number]. Interpretive Data No reference range established. Current interpretive data was last revised 2018. Creatinine Ur 71.5 mg/dL [facility] Comment: Interpretive Data No reference range established. Current interpretive data was last revised 2018. Albumin Creatinine Ratio, Ur <17 1 - 29 mg/g [facility] Comment:Note corrected resul t. Notified Shante [id number] on 06/28/2024 11:55:12 CDT by [id number]. Urine 06/26/2024 11:2 9 AM CDT 06/26/2024 12:40 PM CDT us Pavan Dooley MD LAB URINE ORDERABLES Edited Resu lt - Final Performing Organization Address [facility] Co de Phone Number [address] [place] [address] * TSH (06/26/2024 11:29 AM CDT) [facility] Thyroid Stimulating Hormone 3.01 0.30 - 4.20 mcIUnit/mL Blood 06/26/2024 11:2 9 AM CDT 06/26/2024 12:25 PM CDT Pavan Dooley MD LAB BLOOD ORDERABLES Final Resul t Performing Organization Address [facility] Co de Phone Number [address] [place] [address] * Lipid panel (06/26/2024 11:29 AM CDT) Cholesterol 194 30 - 199 mg/dL Comment: Interpretive Data Ages < or = 19 years Acceptable: <170 mg/dL Borderline high: 170-199 mg/dL High: >or= 200 mg/dL Ages > or = 20 years Desirable: <200 mg/dL Borderline high: 200-239 mg/dL High: >or= 240 mg/dL Literature References: 1. Expert Panel on Integrated Guidelines for Cardiovascular Health and Risk Reduction in Children and Adolescents. Pediatrics 2011;128:S213 2. NCEP Expert Panel. Circulation 2004;110:227 Current Interpretive Data was last revised on 2017. Triglycerides 132 <=149 mg/dL [facility] Comment: Interpretive Data Ages < or = 9 years Acceptable: <75 mg/dL Borderline high: 75-99 mg/dL High: >or= 100 mg/dL Ages 10 to 20 years Acceptable: <90 mg/dL Borderline high: 90-129 mg/dL High: >or= 130 mg/dL Ages > or = 20 years Desirable: <150 mg/dL Borderline high: 150-199 mg/dL High: 200-499 mg/dL Very high: >or= 499 mg/dL Literature References: 1. Expert Panel on Integrated Guidelines for Cardiovascular Health and Risk Reduction in Children and Adolescents. Pediatrics 2011;128:S213 2. NCEP Expert Panel. Circulation 2004;110:227 Current Interpretive Data was last revised on 2017. HDL 47 >=40 mg/dL [facility] Comment: Interpretive Data Ages < or = 19 years Acceptable: >45 mg/dL Borderline low: 40-45 mg/dL Low: <40 mg/dL Ages > or = 20 years Desirable: >or= 60 mg/dL Low: <40 mg/dL Literature References: 1. Expert Panel on Integrated Guidelines for Cardiovascular Health and Risk Reduction in Children and Adolescents. Pediatrics 2011;128:S213 2. NCEP Expert Panel. Circulation 2004;110:227 Current Interpretive Data was last revised on 2017. LDL, calculated 123 <=129 mg/dL [facility] Comment: Interpretive Data Ages < or = 19 years Acceptable: <110 mg/dL Borderline high: 110-129 mg/dL High: >or= 130 mg/dL Ages > or = 20 years Optimal: <100 mg/dL Near optimal: 100-129 mg/dL Borderline high: 130-159 mg/dL High: >160 mg/dL Calculated using the Karlos LDL-C estimating equation. This equation was implemented on 2023. Prior to this date LDL-C was estimated using the Friedewald equation. Literature References: 1. Expert Panel on Integrated Guidelines for Cardiovascular Health and Risk Reduction in Children and Adolescents. Pediatrics 2011;128:S213 2. NCEP Expert Panel. Circulation 2004;110:227 3. Karlos Hogan et al. EDEL Cardiol. 2019June 20;5(5):540-548. doi: 10.1001/jamacardio.2020.0013 Current Interpretive Data was last revised on 2023. Non-HDL Cholesterol 147 mg/dL [facility] Comment: Interpretive Data Ages < or = 19 years Acceptable: <120 mg/dL Borderline high: 120-144 mg/dL High: >145 mg/dL Ages > or = 20 years When triglycerides are >200 mg/dL, Non-HDL cholesterol is a secondary target of therapy with treatment goals that are 30 mg/dL greater than the LDL cholesterol target. Literature References: 1. Expert Panel on Integrated Guidelines for Cardiovascular Health and Risk Reduction in Children and Adolescents. Pediatrics 2011;128:S213 2. NCEP Expert Panel. Circulation 2004;110:227 Current Interpretive Data was last revised on 2017. Chol/HDL ratio 4 [facility] Blood 06/26/2024 11:2 9 AM CDT 06/26/2024 12:25 PM CDT Narrative [facility] - 06/26/2024 1:16 PM CDT Has the patient been fasting for 8 hours or more?->Yes us Pavan Dooley MD LAB BLOOD ORDERABLES Final Resul t [facility] [address] Department [place] [address] * Comprehensive metabolic panel (06/26/2024 11:29 AM CDT) Sodium 140 135 - 145 mmol/L Potassium, pl 3.7 3.3 - 4.9 mmol/L [facility] Chloride 100 97 - 110 mmol/L [facility] CO2 27 22 - 32 mmol/L [facility] Anion gap 13 2 - 15 mmol/L [facility] BUN 17 6 - 25 mg/dL [facility] Creatinine 0.86 0.60 - 1.10 mg/dL [facility] Glucose 108 70 - 199 mg/dL [facility] Comment: Interpretive Data Fasting glucose >/= 126 mg/dl is diagnostic for diabetes. Fasting is defined as no caloric intake for at least 8 hours. Fasting glucose between 100 mg/dl to 125 mg/dl is diagnostic of prediabetes. In a patient with classic symptoms of hyperglycemia or hyperglycemic crisis, a random glucose >/= 200 mg/dl is diagnostic for diabetes. In the absence of unequivocal hyperglycemia, results should be confirmed by repeat testing. The classification and Diagnosis of Diabetes Diabetes Care 202; 46: S19-S40. Current interpretive data was last revised 2022. Calcium 9.9 8.5 - 10.3 mg/dL [facility] Bilirubin, total 0.4 0.1 - 1.2 mg/dL [facility] Protein, pl 7.3 6.5 - 8.5 g/dL [facility] Albumin 4.4 3.5 - 5.0 g/dL [facility] Alk phos 80 40 - 130 Units/L [facility] ALT 19 7 - 45 Units/L [facility] AST 17 10 - 45 Units/L [facility] Blood 06/26/2024 11:2 9 AM CDT 06/26/2024 12:25 PM CDT Pavan Dooley MD LAB BLOOD ORDERABLES Final Resul t [facility] [address] Department [place] [address] * (ABNORMAL) POCT hemoglobin A1c (06/26/2024 10:40 AM CDT) Hemoglobin A1C, POC 6.6(A) 4.0 - 5.6 % Blood 06/26/2024 10:4 0 AM CDT Pavan Dooley MD POINT OF CARE TEST ORDERABLES Fi nal Result * Screening Mammogram (05/29/2024) Anatomical Region Laterality Modality Breast N/A Mammography 05/29/2024 Historical Provider IMG MAMMO PROCEDURES Victoria l Result * Dexa Axial Skeleton Bone Density 1 or 2 Site (05/29/2024) Anatomical Region Laterality Modality Body N/A Radiographic Rosa ging 05/29/2024 Historical Provider MD MURILLO DXA PROCEDURES Edited Result - Final * Diabetic Eye Exam (03/29/2023) Result [facility] Historical Provider HEALTH MAINTENANCE Final Result * Hepatitis C antibody Blood (12/02/2022 11:13 AM CDT) Hep C Ab Nonreactive Nonreactive Comment: Interpretive Data Nonreactive: Antibodies to HCV not detected. Does NOT exclude the possibility of recent exposure to HCV. Equivocal: Equivocal for HCV antibodies. Supplemental molecular testing will be automatically performed to determine infection status in accordance with current CDC screening recommendations. Reactive: Positive for HCV antibodies. This may represent current or past HCV infection. Supplemental molecular testing will be automatically performed to determine current infection status in accordance with current CDC screening recommendations. Interpretive data was last revised on 2019. Blood 12/02/2022 11:1 3 AM CDT 12/02/2022 11:46 AM CDT Pavan Dooley MD LAB MICROBIOLOGY - GENERAL ORDER REAL Final Result [facility] [address] Department [place] [address] * (ABNORMAL) Colonoscopy (09/29/2021) Anatomical Region Laterality Modality Other Result [facility] Historical Provider ENDOSCOPY PROCEDURES Victoria l Result from Last 3 Months or Most Recently Relevant to Health Maintenance Insurance [employer] CHOICE MEDICARE PPO FOR LIFE [employer] CHOICE MEDICARE PPO FOR LIFE Advance Directives For more information, please contact: [phone] * Full Code (Latest Code Status on File) Date Activated Date Inactivated Comments 08/16/2023 6:14 PM 08/22/2023 9:06 PM 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
--- OUTSIDE RECORDS SUMMARY | 2024-09-04 10:11 | XMS_ITS | Continuity of Care Document ---
Author Organization [facility] epartment/[facility] Address [facility] [place] [address] Phone Care Team Providers Care Alternative Energy Technician Name Role Phone PCS, Other Non Billable Unavailable Unavaila ble Allergies, Adverse Reactions, Alerts Substance Reaction Status Criticality MOXIFLOXACIN HCL shakes Active No Informat ion Medications Medication Instructions Dosage Effective Dates (start - stop) Status Comments bupropion HCl XL 150 mg 24 hr tablet, extended release take 1 tablet by oral route 2 times every day 150 MG - Active clorazepate dipotassium 7.5 mg tablet take 1 tablet by oral route 3 times every day 7.5 MG - Active atorvastatin 10 mg tablet take 1 tablet by oral route every day 10 MG - Active acyclovir 200 mg capsule take 2 capsule by oral route every 8-12 hours for cold sore - Active ProAir HFA 90 mcg/actuation aerosol inhaler inhale 2 puff by inhalation route every 4 - 6 hours as needed - Active K - No cost to Patient NC1K; Flovent HFA 44 mcg/actuation aerosol inhaler inhale 2 puff by inhalation route 2 times every day - Active K - No cost to Patient NC1K; Bystolic 10 mg tablet take 1 tablet by oral route every day 10 MG - Active K - No cost to Patient NC1K; lisinopril 40 mg tablet take 1 tablet by oral route every day 40 MG - Active Procedures Procedure Date IMMUNIZATION ADMIN Influenza 3yrs And Older Split Virus Wu drnina OFFICE/OUTPATIENT VISIT, NEW Advance Directives Directive Yes / No Effective Date File Name No Information Encounters Encounter Description Practice Location Reason(s) For Visit Diagnoses Date Provider Providers Copied on Encounter [facility] /[facility], [address] [place] [address], [address], [place] tel:[phone] L Call Center No Information 7 PCS Other Non Billable. [address] [place] [address], [id number] , [place]. tel: [phone] OFFICE/OUTPAT IENT VISIT, [facility] /[facility], [address] [place] [address], [address], [place] tel:[phone] P GRD General Medicine here to establish care (chief complaint) flu shot (chief complaint) HTN, goal below 130/80Hyperlipidem ia LDL goal <100Mild intermittent asthma without complicationNeeds flu shotHealthcare maintenance 6 Giovany Vickers. [address] [place] [address], [address], [place]. tel: [phone] As per patient privacy policy some of the clinical information may not be visible. Family History Family Member Type Diagnosis Age At Onset Father Problem (finding) Alive and well Mother Problem (finding) Parkinson's disease (Ca use Of ) Immunizations Vaccine Date Status Comments Influenza Adult administered Source: New Immunization Record Payers Payer name Insurance type Covered constitution party ID Authoriza tion(s) No Information Social History Type Description Quantity Date Captured Comments Alcohol Use Details Unknown Caffeine Use Details Unknown Tobacco Use Status Smoking Status No Information Sex Female Chief Complaint And Reason For Visit No Information Plan Of Treatment Date Type Action Status Referral Ordered: Referrals: [facility] Integrated Behavioral Health. Evaluate and treat ordered History Of Present Illness Encounter Date Complaint History Of Prese nt Illness flu shot here to establish care pt moved to the area recently and needs to establish care with pcp. hx of HNT, hyperlipidemia, GERD, Hep C, Asthma, Anxiety/Depression. pt states needs medication refills. Instructions Date Instruction Additional Infor marcela Will have pt add Malcolm vent during those months that she finds she needs albuterol more often than once a month. Can then stop using it if only needing meds rarely. Related to Mild intermittent asthma without complication Flu shot today. Related to Needs flu shot Will increase lisino pril to 40 mg, and add bystolic 10 mg daily. F/u in 2-3 wks. Related to HTN, goal below 130/80 Will recheck lipids with pt off statin. Can then decide if it needs to be resumed. Related to Hyperlipidemia LDL goal <100 As per patient privacy policy some of the clinical information may not be visible. Assessments Type Assessment Date No Information Patient Care Teams Name Effective Dates (start - stop) Status Members No Information
--- OUTSIDE RECORDS SUMMARY | 2024-09-04 10:11 | XMS_ITS ---
Author Organization [facility] Address [address] [place] [address] Care Team Providers Care Emblem Drawer In Name Role Phone Pavan Dooley MD Primary Care Provider [phone] Lita Whitlock MD Unavailable [phone] Abhay GarciaM Unavailable [phone] Juan Dumont MD Unavailable [phone] Active Problems Problem Noted Date Diagnosed Date [...] visit. Personalized Prevention Plan Services (PPPS): Immunization: [id number]: Risk and benefits discussed with patient. Patient voiced understandings; and refused. [id number]: ordered today. Influenza: Risk and benefits discussed [...] visit. Personalized Prevention Plan Services (PPPS): Immunization: [id number]: Risk and benefits discussed with patient. Patient voiced understandings; and refused. [id number]: ordered today. Influenza: Risk and benefits discussed [...] visit. Personalized Prevention Plan Services (PPPS): Immunization: [id number]: Risk and benefits discussed with patient. Patient voiced understandings; and refused. [id number]: ordered today. Influenza: Risk and benefits discussed [...] visit. Personalized Prevention Plan Services (PPPS): Immunization: [id number]: Risk and benefits discussed with patient. Patient voiced understandings; and refused. [id number]: ordered today. Influenza: Risk and benefits discussed with patient. Patient voiced understandings; and refused. HepatitisB: Not Applicable. Tetanus: UTD 2019 Shingles: Risk and benefits discussed with patient. Patient voiced understandings; and refused. Cancer Screening: Mammogram: UTD. and Annually January . PAP Smear: Not Applicable. Prostate Cancer Screening: UTD. Colorectal Cancer Screening: Dr. Aguirre. HIJessy Lung Cancer Screening: Not Applicable. Others: Diet: [...] Annually Assessment & Plan (04/29/2020 9:42 AM FLAT FOLDER): Patient here for annual Medicare wellness visit and for review of complete medical problem list. All the elements of the plan were completed as outlined by [facility]. A copy of the prevention plan was [...] visit. Personalized Prevention Plan Services (PPPS): Immunization: [id number]: Risk and benefits discussed with patient. Patient voiced understandings; and refused. [id number]: ordered today. Influenza: Risk and benefits discussed with patient. Patient voiced understandings; and refused. HepatitisB: Not Applicable. Tetanus: Ordered For Today. Shingles: Risk and benefits discussed with patient. Patient voiced understandings; and refused. Cancer Screening: Mammogram: UTD. and Annually January . PAP Smear: Not Applicable. Prostate Cancer Screening: UTD. Colorectal Cancer Screening: Dr. Aguirre. HIJessy. Lung Cancer Screening: Not Applicable. Others: Diet: [...] Annually Assessment & Plan (04/24/2019 10:02 AM FLAT FOLDER): Patient here for annual Medicare wellness visit and for review of complete medical problem list. All the elements of the plan were completed as outlined by [facility]. A copy of the prevention plan was [...] visit. Personalized Prevention Plan Services (PPPS): Immunization: [id number]: Risk and benefits discussed with patient. Patient voiced understandings; and refused. [id number]: Risk and benefits discussed with patient. Patient [...] Radiation. On Tamixifen. Annual Mammogram schedule. Remission. Current Treatment and Therapy Plans No current plan information found. Past Treatment and Therapy Plans No past plan information found. Lifetime Dose Tracking * Chemical Lifetime Dose Automatic Entry Manual Entr y DLP 826 mGycm 826 mGycm 0 mGycm
--- OUTSIDE RECORDS SUMMARY | 2024-09-04 10:11 | XMS_ITS | Clinical Summary ---
Author Organization [facility] at the Medical Office Building Address [address] [place] [address] Care Team Providers Care Industrial Paramedic Name Role Phone Pavan Dooley MD Primary Care Provider [phone] Lita Whitlock MD Unavailable [phone] Abhay Garcia DPM Unavailable [phone] Juan Dumont MD Unavailable [phone] Allergies Active Allergy Reactions Criticality Noted Date [...] without long-term current use of insulin (HCC) Take 1 tablet (850 mg total) by [...] 30 tablet 11 06/27/19 25 026 Active Eliquis 5 mg [...] visit. Personalized Prevention Plan Services (PPPS): Immunization: [id number]: Risk and benefits discussed with patient. Patient voiced understandings; and refused. [id number]: ordered today. Influenza: Risk and benefits discussed [...] visit. Personalized Prevention Plan Services (PPPS): Immunization: [id number]: Risk and benefits discussed with patient. Patient voiced understandings; and refused. [id number]: ordered today. Influenza: Risk and benefits discussed [...] visit. Personalized Prevention Plan Services (PPPS): Immunization: [id number]: Risk and benefits discussed with patient. Patient voiced understandings; and refused. [id number]: ordered today. Influenza: Risk and benefits discussed [...] visit. Personalized Prevention Plan Services (PPPS): Immunization: [id number]: Risk and benefits discussed with patient. Patient voiced understandings; and refused. [id number]: ordered today. Influenza: Risk and benefits discussed [...] Annually Assessment & Plan (04/29/2020 9:42 AM AIR SURVEILLANCE OPERATOR): Patient here for annual Medicare wellness visit [...] visit. Personalized Prevention Plan Services (PPPS): Immunization: [id number]: Risk and benefits discussed with patient. Patient voiced understandings; and refused. [id number]: ordered today. Influenza: Risk and benefits discussed with patient. Patient voiced understandings; and refused. HepatitisB: Not Applicable. Tetanus: Ordered For Today. Shingles: Risk and benefits discussed with patient. Patient voiced understandings; and refused. Cancer Screening: Mammogram: UTD. and Annually January . PAP Smear: Not Applicable. Prostate Cancer Screening: UTD. Colorectal Cancer Screening: Dr. Aguirre. [facility]. Lung Cancer Screening: Not Applicable. Others: Diet: [...] Annually Assessment & Plan (04/24/2019 10:02 AM AIR SURVEILLANCE OPERATOR): Patient here for annual Medicare wellness visit [...] visit. Personalized Prevention Plan Services (PPPS): Immunization: [id number]: Risk and benefits discussed with patient. Patient voiced understandings; and refused. Jcqrdha69: Risk and benefits discussed with patient. Patient [...] Radiation. On Tamixifen. Annual Mammogram schedule. Remission. Encounters Date Type Department Care Team Description 06/28/2024 Telephone [facility] Medical [facility] Family Medicine at [address] [place] [address] Pavan Dooley MD Labs Only 06/26/2024 11:10 AM CDT Lab [facility] Medical Office [address]ld[address] [place] [address] Encounter for annual health examination; Type 2 diabetes mellitus without complication, without long-term current use of insulin (HCC) 06/26/2024 10:15 AM CDT Office Visit [facility] Family Medicine at [address] [place] [address] Pavan Dooley MD Medicare annual wellness visit, subsequent (Primary Dx); Encounter for annual health examination; Type 2 diabetes mellitus without complication, without long-term current use of insulin (HCC); Mixed hyperlipidemia; Essential hypertension; Other persistent atrial fibrillation (HCC); Chronic diastolic congestive heart failure (HCC); Hypothyroidism, unspecified type 06/26/2024 Results Follow-Up [facility] Medicine at [address] [address] Pavan Dooley MD TSH, Comprehensive metabolic panel, CBC with auto differential, Additional followed-up results: 4 06/07/2024 Orders Only [facility] Medicine at [address] [address] Pavan Dooley MD 06/07/2024 Orders Only [facility] at [address] [address] Pavan Dooley MD 06/06/2024 Orders Only [facility] at [address] [address] Pavan Dooley MD from Last 3 Months Immunizations Immunization Administration Dates Next Due Influenza, Quadrivalent, Hig h Dose, Preservative Free, Intrr 10/21/2022(Deferred: Patient decision) Influenza, Unspecified 03/10/2023(Deferr ed: Patient decision),10/21/2021(Deferred: Patient decision),10/21/2021(Deferred: Patient decision),06/21/2016,06/16/2016, 017,04/12/2016,03/10/2016 Pneumococcal Conjugate PCV 13 06/15/2021 Pneumococcal Conjugate Pcv20 06/23/2023 Td, adsorbed 05/31/2002 Tdap 04/24/2019 ZOSTER LIVE 06/21/2016, 7,05/26/2016,2016,03/10/2016,09/05/2014 Surgical History Surgery Date Site/Laterality Comments BREAST LUMPECTOMY TUBAL LIGATION 02/20/1986 - 02/19/1987 Medical History Medical History Date Comments Hypertension Hyperlipidemia GERD (gastroesophageal reflux disease) Diabetes mellitus (HCC) Atrial fibrillation (HCC) CHF (congestive heart failure) (HCC) Sepsis (HCC) Family History Medical History Relation Name Comments Intracerebral hemorrhage Father Dementia Mother Hypertension Mother Relation Name Status Comments Brother Alive Daughter Alive Father (Age 47) Mother Sister 1 Alive Sister 2 Alive Sister 3 Alive Son Alive Social History Tobacco Use Types Packs/Day Years Used Date Smoking Tobacco: Former Cigarettes 3 10.6 1 988 - 09/20/1997 Vaping Started: 11/29 Smokeless Tobacco: Never Tobacco Cessation:Counseling Given: Not Answered Alcohol Use Standard Drinks/Week Comments Yes 0 (1 standard drink = 0.6 oz pur e alcohol) [facility] Utilities Answer Date Recorded In the past 12 months has th e [employer], gas, oil, or water web care [employer] threatened to shut off services in your [...] often do you attend chur ch or confucianism services? Never 08/17/2023 Do you belong to any clubs o r organizations such as holiness groups, unions, fraternal or athletic groups, or [...] any time in the past 12 m [facility], were you homeless or living in a retirement (including now)? No 08/17/2023 Personal Safety Answer Date Recorded Have you ever been in or are you currently in a harmful physical or emotional relationship or is someone making you feel afraid or unsafe? Denies 08/16/2023 Comments No Sex and Gender Information Value Date Recorded Sex Assigned at Not on file Legal Sex Female 7:56 AM AIR SURVEILLANCE OPERATOR Gender Identity Not on file Sexual Orientation Not on file Obstetrics History Last Filed Vital Signs Vital Sign Reading [...] 06/26/2024 10:28 AM CDT Plan of Treatment Health Maintenance Due Date Last Done Comments Zoster Vaccine (2 of 3) 08/16/2016 06/22/19 17, 06/16/2016, 05/26/2016, Additional history exists Foot Exam 03/14/2023 03/14/2022, 11/22, 09/15/2021, Additional history exists Covid-19 Vaccine (3 - 2023-2 5 season) 2023 06/13/2020, 05/23/2020 Colon Cancer Screening-Colonoscopy 09/29/2024 09/29/2021, 09/29/2021, 05/24/2013 Hemoglobin A1C 12/27/2024 06/26/2024, 11/20, 06/23/2023, Additional history exists Dilated Eye Exam 03/29/2025 03/29/2023, , 09/28/2022, Additional history exists Breast Cancer Screening-Mammogram 05/29/2025 05/29/2024, 05/29/2024, 05/29/2024, Additional history exists Albumin Creatinine Ratio, Urine 06/26/2025 06/26/2024, 06/23/2023, 06/08/2022 Depression Screening 06/26/2025 06/26/2024, 06/26/2024, 06/23/2023, Additional history exists Fall Risk Assessment 06/26/2025 06/26/2024, 08/22/2023, 06/23/2023, Additional history exists Lipid Panel 06/26/2025 06/26/2024, 05/0 04/2023, 06/08/2022, Additional history exists Well Visit 65+ 06/26/2025 06/26/2024, 05/0 04/2023, 06/15/2022, Additional history exists eGFR 06/26/2025 06/26/2024, 07/0 03/2023, 08/21/2023, Additional history exists Osteoporosis Screening-Bone Density Scan 05/29/2026 05/29/2024, 05/29/2024, 05/29/2024, Additional history exists DTaP/Tdap/Td Vaccine (2 - Td or Tdap) 04/23/2029 04/24/2019, 05/31/2002 Influenza Vaccine Discontinued 06/21/2016, , 05/26/2016, Additional history exists Colon Cancer Screening-CT Colonography Discontinued 09/29/2021, 09/29/2021, 05/24/2013 Colon Cancer Screening-DNA Stool Discontinued 09/29/2021, 09/29/2021, 05/24/2013 Colon Cancer Screening-FIT Discontinued 09/29, 09/29/2021, 05/24/2013 Colon Cancer Screening-Sigmoidoscopy Discontinued 09/29/2021, 09/29/2021, 05/24/2013 Hepatitis C Screening Completed 12/02/2022 Hepatitis B Screening Completed 06/23/2023 Pneumococcal vaccine 65+ Discontinued 06/23/2023, 05/22 Procedures Procedure Name Priority Date/Time Associated Diagnosis [...] 9 AM CDT 06/26/2024 12:25 PM CDT us Pavan Dooley MD LAB BLOOD ORDERABLES Final Resul t [facility] [address] Department [place] [address] * Differential, auto (06/26/2024 11:29 AM CDT) Neutrophil abs 3.98 1.50 - 6.50 K/cumm Imm gran abs 0.01 0.00 - 0.10 K/cumm [facility] Lymphocyte abs 1.73 0.80 - 3.30 K/cumm [facility] Monocyte abs 0.45 0.20 - 0.80 K/cumm [facility] Eosinophil abs 0.04 0.00 - 0.50 K/cumm [facility] Basophil abs 0.03 0.00 - 0.10 K/cumm [facility] Neutrophil pct 63.8 % [facility] Comment: Interpretive Data Percent cell count reference ranges are not reported, since discordance with absolute values may lead to misinterpretation of CBC data. Current Interpretive Data was last revised on 2017. Imm gran pct 0.2 % [facility] Comment: Interpretive Data Percent cell count reference ranges are not reported, since discordance with absolute values may lead to misinterpretation of CBC data. Current Interpretive Data was last revised on 2017. Lymphocyte pct 27.7 % [facility] Comment: Interpretive Data Percent cell count reference ranges are not reported, since discordance with absolute values may lead to misinterpretation of CBC data. Current Interpretive Data was last revised on 2017. Monocyte pct 7.2 % [facility] Comment: Interpretive Data Percent cell count reference ranges are not reported, since discordance with absolute values may lead to misinterpretation of CBC data. Current Interpretive Data was last revised on 2017. Eosinophil pct 0.6 % [facility] Comment: Interpretive Data Percent cell count reference ranges are not reported, since discordance with absolute values may lead to misinterpretation of CBC data. Current Interpretive Data was last revised on 2017. Basophil pct 0.5 % [facility] Comment: Interpretive Data Percent cell count reference ranges are not reported, since discordance with absolute values may lead to misinterpretation of CBC data. Current Interpretive Data was last revised on 2017. Blood 06/26/2024 11:2 9 AM CDT 06/26/2024 12:27 PM CDT us Pavan Dooley MD LAB BLOOD ORDERABLES Final Resul t [facility] [address] Department [place] [address] * (ABNORMAL) CBC with auto differential (06/26/2024 11:29 AM CDT) [facility] WBC 6.24 3.80 - 9.90 K/cumm Hgb 12.5 11.9 - 15.5 g/dL [facility] Hct 38.8 35.6 - 45.5 % [facility] Plt 254 150 - 400 K/cumm [facility] MPV 12.4(H) 9.1 - 12.3 fL [facility] RBC 4.24 3.90 - 5.20 M/cumm [facility] MCV 91.5 81.3 - 96.4 fL [facility] MCH 29.5 27.1 - 33.3 pg [facility] MCHC 32.2(L) 32.3 - 35.7 g/dL [facility] RDW CV 12.8 11.1 - 14.9 % [facility] RDW SD 42.7 35.7 - 48.1 fL [facility] NRBC abs 0.00 0.00 - 0.01 K/cumm [facility] Blood 06/26/2024 11:2 9 AM CDT 06/26/2024 12:27 PM CDT us Pavan Dooley MD LAB BLOOD ORDERABLES Final Resul t [facility] [address] Department of Laboratories [place], [place] [id number] * Albumin Creatinine Ratio, Urine (06/26/2024 11:29 AM CDT) [facility] Albumin Ur <12.0 mg/L Comment: Note corrected result. Notified Shante [id number] on 06/28/2024 11:55:12 CDT by [id number]. Interpretive Data No reference range established. Current interpretive data was last revised 2018. Creatinine Ur 71.5 mg/dL [facility] Comment: Interpretive Data No reference range established. Current interpretive data was last revised 2018. Albumin Creatinine Ratio, Ur <17 1 - 29 mg/g [facility] Comment:Note corrected resul t. Notified Shante [id number] on 06/28/2024 11:55:12 CDT by [id number]. Urine 06/26/2024 11:2 9 AM CDT 06/26/2024 12:40 PM CDT Pavan Dooley MD LAB URINE ORDERABLES Edited Resu lt - Final Performing Organization Address [facility] Co de Phone Number [address] [place] [address] * TSH (06/26/2024 11:29 AM CDT) Thyroid Stimulating Hormone 3.01 0.30 - 4.20 mcIUnit/mL Blood 06/26/2024 11:2 9 AM CDT 06/26/2024 12:25 PM CDT Pavan Dooley MD LAB BLOOD ORDERABLES Final Resul t Performing Organization Address [facility] de Phone Number [address] [address] * Lipid panel (06/26/2024 11:29 AM CDT) [...] NCEP Expert Panel. Circulation 2004;110:227 3. Karlos Solis al. EDEL Cardiol. 2020 June 20;5(5):540-548. doi: 10.1001/jamacardio.2020.0013 Current Interpretive Data was last revised on 2023. Non-HDL Cholesterol 147 mg/dL [facility] Comment: Interpretive Data Ages < [...] last revised on 2017. Chol/HDL ratio 4 [facility] Blood 06/26/2024 11:2 9 AM CDT 06/26/2024 12:25 PM CDT Narrative [facility] - 06/26/2024 1:16 PM CDT Has the patient been fasting for 8 hours or more?->Yes us Pavan Dooley MD LAB BLOOD ORDERABLES Final Resul t [facility] [address] Department [place] [address] * Comprehensive metabolic panel (06/26/2024 11:29 AM CDT) Sodium 140 135 - 145 mmol/L Potassium, pl 3.7 3.3 - 4.9 mmol/L [facility] Chloride 100 97 - 110 mmol/L [facility] CO2 27 22 - 32 mmol/L [facility] Anion gap 13 2 - 15 mmol/L [facility] BUN 17 6 - 25 mg/dL [facility] Creatinine 0.86 0.60 - 1.10 mg/dL [facility] Glucose 108 70 - 199 mg/dL [facility] Comment: Interpretive Data Fasting glucose >/= 126 [...] classification and Diagnosis of Diabetes Diabetes Care 2021; 46: S19-S40. Current interpretive data was last revised 2022. Calcium 9.9 8.5 - 10.3 mg/dL [facility] Bilirubin, total 0.4 0.1 - 1.2 mg/dL [facility] Protein, pl 7.3 6.5 - 8.5 g/dL [facility] Albumin 4.4 3.5 - 5.0 g/dL [facility] Alk phos 80 40 - 130 Units/L [facility] ALT 19 7 - 45 Units/L [facility] AST 17 10 - 45 Units/L [facility] Blood 06/26/2024 11:2 9 AM CDT 06/26/2024 12:25 PM CDT Result [facility] Pavan Dooley MD LAB BLOOD ORDERABLES Final Resul t [facility] [address] Department [place] [address] * (ABNORMAL) POCT hemoglobin A1c (06/26/2024 10:40 AM CDT) Pathologist [facility] Hemoglobin A1C, POC 6.6(A) 4.0 - 5.6 % Blood 06/26/2024 10:4 0 AM CDT Result [facility] Pavan Dooley MD POINT OF CARE TEST ORDERABLES Fi nal Result * Screening Mammogram (05/29/2024) Anatomical Region Laterality Modality Breast N/A Mammography 05/29/2024 Result [facility] Yun ALONZO IMG MAMMO PROCEDURES Victoria l Result * Dexa Axial Skeleton Bone Density 1 or 2 Site (05/29/2024) Anatomical Region Laterality Modality Body N/A Radiographic Rosa ging 05/29/2024 Result [facility] Yun ALONZO IMG DXA PROCEDURES Edited Result - Final * Diabetic Eye Exam (03/29/2023) Result [facility] Historical Yun ALONZO HEALTH MAINTENANCE Final Result * Hepatitis C [...] MICROBIOLOGY - GENERAL ORDER REAL Final Result [facility] [address] Department [place] [address] * (ABNORMAL) Colonoscopy (09/29/2021) Anatomical Region Laterality Modality Other Historical Provider ENDOSCOPY PROCEDURES Victoria l Result from Last 3 Months or Most Recently Relevant to Health Maintenance Insurance [employer]IC[employer] PPO [employer] MEDIC[employer] PPO [employer] FOR LIFE Advance Directives For more information, please contact: [phone] * Full Code (Latest Code Status on File) Date Activated Date Inactivated Comments 08/16/2023 6:14 PM 08/22/2023 9:06 PM Care Teams Industrial Paramedic Relationship Specialty Start Date End Date Pavan Dooley MD PCP - General Family Medicine 06/14/19 Lita Whitlock MD [address] [address] Referring Physician Cardiovascular Disease 06/15/22 Abhay Garcia DPM [address] [place] [address] Consulting Physician Podiatry 06/15/22 Juan Dumont MD [address] [place] [address] [place] [address] Referring Physician Hematology 06/15/22
[2024-09-04 10:22] LABS: Hematocrit 41.0 % (37.0-47.0); Hemoglobin 13.5 g/dL (12.0-15.0); Immature Granulocyte Percent A 0.4 % (0-0.5); Lymphocytes Absolute Auto 1.86 K/mm3 (0.9-3.2); Mean Corpuscular HGB Conc 32.9 g/dl (32-36); Mean Corpuscular Hemoglobin 30.1 pg (26-34); Mean Corpuscular Volume 91.5 fl (80-100); Nucleated Red Blood Cells Absolute Auto 0.000 K/mm3 (0.0-0.012); Nucleated Red Blood Cells Perc 0.0 % (0.0-0.2); Platelet Count Result 259 k/mm3 (150-375); Red Blood Count 4.48 M/mm3 (4.2-5.4); White Blood Count 8.4 K/mm3 (4.5-10.0)
[2024-09-04 13:24] LABS: Alanine Aminotransferase 19 U/L (6-35); Albumin Level 4.8 g/dL (3.5-5.1); Alkaline Phosphatase 64 U/L (38-126); Anion Gap 12 mmol/L (4-12); Aspartate Amino Transferase 27 U/L (14-36); Bilirubin,Total 0.5 mg/dL (0.2-1.3); Blood Urea Nitrogen 24 mg/dL (7-17); Calcium 9.9 mg/dL (8.4-10.2); Carbon Dioxide 28 mmol/L (22-30); Chloride 100 mmol/L (98-107); Estimated Glomerular Filt Rate 54; Glucose 133 mg/dL (65-110); Potassium 4.5 mmol/L (3.4-5.0); Sodium 140 mmol/L (137-145); Total Protein 8.0 g/dL (6.3-8.2)
== END 2024-09-04 10:00 | disposition home or self-care (01) ==
PROVIDERS: PCP Family Medicine; Visit Provider Internal Medicine Hematology & Oncology
DX: C50.212 Malignant neoplasm of upper-inner quadrant of left female breast (principal)
CPT/HCPCS: 36415; 80053; 85025; 86300

== ENCOUNTER 2024-09-11 10:36 | Outpatient (CLI) | payer MEDICARE, OTHER, SELFPAY ==
--- OUTSIDE RECORDS SUMMARY | 2024-09-11 10:45 | XMS_ITS | Encounter Summary ---
Author Organization [facility] Address [address] [place] [address] Care Team Providers Care Political Science Instructor Name Role Phone Pavan Dooley MD Primary Care Provider [phone] Encounter Details Date Type Department Care Team (Late Contact Info) Description 11/03/2016 Chart Note [facility] Radiation Therapy [address] [place] [address] [place] [address] [place] [address] Social History Tobacco Use Types Packs/Day Years Used Date Smoking Tobacco: Former Cigarettes 3 10 1 987 - 1996 Smokeless Tobacco: Never Alcohol Use Standard Drinks/Week Comments Yes 0 (1 standard drink = 0.6 oz pur e alcohol) occasional Comments No Sex and Gender Information Value Date Recorded Sex Assigned at Not on file Legal Sex Female 10:46 AM CDT Gender Identity Not on file Sexual Orientation Not on file documented as of this encounter Plan of Treatment Upcoming Encounters Date Type Department Care Team (Late st Contact Info) Description 09/15/2025 10:15 AM CDT Office Visit [facility] Oncology and Hematology - [place] [address] [facility] [address] [place] [address] Juan Dumont MD [address] [facility] [address] [place] [address] documented as of this encounter Visit Diagnoses Not on filedocumented in this encounter Care Teams Political Science Instructor Relationship Specialty Start Date End Date Pavan Dooley MD [facility] [address] [address] PCP - General Family Practice 03/03/21 documented as of this encounter
--- OUTSIDE RECORDS SUMMARY | 2024-09-11 10:45 | XMS_ITS | Encounter Summary ---
Author Organization [facility] [employer] [facility] Address [address] [place] [address] Care Team Providers Care Pinsetter Mechanic Helper Name Role Phone Pavan Dooley MD Primary Care Provider [phone] Encounter Details Date Type Department Care Team ([facility] Contact Info) Description 09/06/2024 Orders Only [facility] and [facility] [address] [place] [address] Juan Dumont MD [facility] [address] [place] [address] Social History Tobacco Use Types Packs/Day Years [...] Encounters Date Type Department Care Team (Late Contact Info) Description 09/15/2025 10:15 AM CDT Office Visit [facility] Oncology and Hematology [facility] [address] [place] [address] Juan Dumont MD [address] [place] [address] documented as of this encounter Procedures Procedure Name Priority Date/Time Associated Diagnosis Comments COMPREHENSIVE METABOLIC PANEL Routine 09/04/2024 2:47 PM CDT CANCER ANTIGEN 15-3 Routine 09/04/2024 2 :13 PM CDT documented in this encounter Results * COMPREHENSIVE METABOLIC PANEL (09/04/2024 2:47 PM CDT) Blood us Juan Dumont MD CHEMISTRY ORDERABLES Final Resu lt * CANCER ANTIGEN 15-3 (09/04/2024 2:13 PM CDT) Blood us Juan Dumont MD CHEMISTRY ORDERABLES Final Resu lt documented in this encounter Visit Diagnoses Not on filedocumented in this encounter Care Teams Pinsetter Mechanic Helper Relationship Specialty Start Date End Date Pavan Dooley MD [address] [place] [phone] PCP - General Family Practice 03/03/21 documented as of this encounter
--- OUTSIDE RECORDS SUMMARY | 2024-09-11 10:45 | XMS_ITS | Clinical Summary ---
Author Organization [facility] at the Medical Office Building Address [address] [place] [address] Care Team Providers Care Automobile Sales Representative Name Role Phone Pavan Dooley MD Primary Care Provider [phone] Lita Whitlock MD Unavailable [phone] Abhay Garcia DPM Unavailable [phone] Juan Dumont MD Unavailable [phone] Allergies Active Allergy Reactions Criticality Noted [...] visit. Personalized Prevention Plan Services (PPPS): Immunization: [id number]: Risk and benefits discussed with patient. Patient voiced understandings; and refused. [id number]: ordered today. Influenza: Risk and benefits discussed [...] visit. Personalized Prevention Plan Services (PPPS): Immunization: [id number]: Risk and benefits discussed with patient. Patient voiced understandings; and refused. [id number]: ordered today. Influenza: Risk and benefits discussed [...] visit. Personalized Prevention Plan Services (PPPS): Immunization: [id number]: Risk and benefits discussed with patient. Patient voiced understandings; and refused. [id number]: ordered today. Influenza: Risk and benefits discussed [...] visit. Personalized Prevention Plan Services (PPPS): Immunization: [id number]: Risk and benefits discussed with patient. Patient voiced understandings; and refused. [id number]: ordered today. Influenza: Risk and benefits discussed [...] Annually Assessment & Plan (04/29/2020 9:42 AM SUPERVISOR GENERAL): Patient here for annual Medicare wellness visit [...] visit. Personalized Prevention Plan Services (PPPS): Immunization: [id number]: Risk and benefits discussed with patient. Patient voiced understandings; and refused. [id number]: ordered today. Influenza: Risk and benefits discussed with patient. Patient voiced understandings; and refused. HepatitisB: Not Applicable. Tetanus: Ordered For Today. Shingles: Risk and benefits discussed with patient. Patient voiced understandings; and refused. Cancer Screening: Mammogram: UTD. and Annually January . PAP Smear: Not Applicable. Prostate Cancer Screening: UTD. Colorectal Cancer Screening: Dr. Aguirre. [facility]. Lung Cancer Screening: Not [...] Annually Assessment & Plan (04/24/2019 10:02 AM SUPERVISOR GENERAL): Patient here for annual Medicare wellness visit [...] visit. Personalized Prevention Plan Services (PPPS): Immunization: [id number]: Risk and benefits discussed with patient. Patient voiced understandings; and refused. [id number]: Risk and benefits discussed with patient. Patient [...] Type Department Care Team Description 06/28/[address] [facility] Medical [facility] Family Medicine at [address] [place] [address] Pavan Dooley MD Labs Only 06/26/2024 11:10 AM CDT Lab [facility] Medical Office Bld[address] [place] [id number] Encounter for annual health examination; Type 2 diabetes mellitus without complication, without long-term current use of insulin (HCC) 06/26/2024 10:15 AM CDT Office Visit [facility] Family Medicine at [address] [place] [address] Pavan Dooley MD Medicare annual wellness visit, subsequent (Primary Dx); Encounter for annual health examination; Type 2 diabetes mellitus without complication, without long-term current use of insulin (HCC); Mixed hyperlipidemia; Essential hypertension; Other persistent atrial fibrillation (HCC); Chronic diastolic congestive heart failure (HCC); Hypothyroidism, unspecified type 06/26/2024 Results Follow-Up [facility] Family Medicine at [address] [place] [address] Pavan Dooley MD TSH, Comprehensive metabolic panel, CBC with auto differential, Additional followed-up results: 4 from Last 3 Months Immunizations Immunization Administration [...] drink = 0.6 oz pur e alcohol) [facility] Utilities Answer Date Recorded In the past 12 months has [employer], gas, oil, or water [employer] threatened to shut off services in your [...] often do you attend chur ch or yazidi services? Never 08/17/2023 Do you belong to any clubs o r organizations such as jain groups, unions, fraternal or athletic groups, or [...] time in the past 12 m [facility], were you homeless or living in a usp (including now)? No 08/17/2023 Personal Safety Answer Date Recorded Have you ever been in or are you currently in a harmful physical or emotional relationship or is someone making you feel afraid or unsafe? Denies 08/16/2023 Comments No Sex and Gender Information Value Date Recorded Sex Assigned at Not on file Legal Sex Female 7:56 AM SUPERVISOR GENERAL Gender Identity Not on file Sexual Orientation [...] 11/22, 09/15/2021, Additional history exists Covid-19 Vaccine (2023-2 5 season) 2023 06/13/2020, 05/23/2020 Colon Cancer [...] MD LAB BLOOD ORDERABLES Final Resul t [facility] [address] [facility] Department [place] [address] * Differential, auto (06/26/2024 11:29 AM CDT) Neutrophil abs 3.98 1.50 - 6.50 K/cumm Imm gran abs 0.01 0.00 - 0.10 K/cumm [facility] Lymphocyte abs 1.73 0.80 - 3.30 K/cumm [facility] Monocyte abs 0.45 0.20 - 0.80 K/cumm [facility] Eosinophil abs 0.04 0.00 - 0.50 K/cumm [facility] Basophil abs 0.03 0.00 - 0.10 K/cumm [facility] Neutrophil pct 63.8 % [facility] Comment: Interpretive Data Percent cell count reference ranges are not reported, since discordance with absolute values may lead to misinterpretation of CBC data. Current Interpretive Data was last revised on 2017. Imm gran pct 0.2 % [facility] Comment: Interpretive Data Percent cell count reference ranges are not reported, since discordance with absolute values may lead to misinterpretation of CBC data. Current Interpretive Data was last revised on 2017. Lymphocyte pct 27.7 % [facility] Comment: Interpretive Data Percent cell count reference ranges are not reported, since discordance with absolute values may lead to misinterpretation of CBC data. Current Interpretive Data was last revised on 2017. Monocyte pct 7.2 % [facility] Comment: Interpretive Data Percent cell count reference ranges are not reported, since discordance with absolute values may lead to misinterpretation of CBC data. Current Interpretive Data was last revised on 2017. Eosinophil pct 0.6 % [facility] Comment: Interpretive Data Percent cell count reference ranges are not reported, since discordance with absolute values may lead to misinterpretation of CBC data. Current Interpretive Data was last revised on 2017. Basophil pct 0.5 % [facility] Comment: Interpretive Data Percent cell count reference ranges are not reported, since discordance with absolute values may lead to misinterpretation of CBC data. Current Interpretive Data was last revised on 2017. Blood 06/26/2024 11:2 9 AM CDT 06/26/2024 12:27 PM CDT us Pavan Dooley MD LAB BLOOD ORDERABLES Final Resul t [facility] [address] [facility] Department [place] [address] * (ABNORMAL) CBC with auto differential (06/26/2024 11:29 AM CDT) WBC 6.24 3.80 - 9.90 K/cumm Hgb 12.5 11.9 - 15.5 g/dL [facility] Hct 38.8 35.6 - 45.5 % [facility] Plt 254 150 - 400 K/cumm [facility] MPV 12.4(H) 9.1 - 12.3 fL [facility] RBC 4.24 3.90 - 5.20 M/cumm [facility] MCV 91.5 81.3 - 96.4 fL [facility] MCH 29.5 27.1 - 33.3 pg [facility] MCHC 32.2(L) 32.3 - 35.7 g/dL [facility] RDW CV 12.8 11.1 - 14.9 % [facility] RDW SD 42.7 35.7 - 48.1 fL [facility] NRBC abs 0.00 0.00 - 0.01 K/cumm [facility] Blood 06/26/2024 11:2 9 AM CDT 06/26/2024 12:27 PM CDT Pavan Dooley MD LAB BLOOD ORDERABLES Final Resul t Performing Organization Address [facility] de Phone Number [facility] [address] [employer] [place] [address] * Albumin Creatinine Ratio, Urine (06/26/2024 11:29 AM CDT) Albumin Ur <12.0 mg/L Comment: Note corrected result. Notified Shante [id number] on 06/28/2024 11:55:12 CDT by [id number]. Interpretive Data No reference range established. Current interpretive data was last revised 2018. Creatinine Ur 71.5 mg/dL [facility] Comment: Interpretive Data No reference range established. Current interpretive data was last revised 2018. Albumin Creatinine Ratio, Ur <17 1 - 29 mg/g [facility] Comment:Note corrected resul t. Notified Shante [id number] on 06/28/2024 11:55:12 CDT by [id number]. Urine 06/26/2024 11:2 9 AM CDT 06/26/2024 12:40 PM CDT Pavan Dooley MD LAB URINE ORDERABLES Edited Resu lt - Final Performing Organization Address [facility] Co de Phone Number [facility] [address] [place] [address] * TSH (06/26/2024 11:29 AM CDT) Thyroid Stimulating Hormone 3.01 0.30 - 4.20 mcIUnit/mL Blood 06/26/2024 11:2 9 AM CDT 06/26/2024 12:25 PM CDT us Pavan Dooley MD LAB BLOOD ORDERABLES Final Resul t [facility] [address] [facility] Department [place] [address] * Lipid panel (06/26/2024 11:29 AM CDT) [...] 2017. LDL, calculated 123 <=129 mg/dL [facility] Comment: Interpretive Data Ages [...] 3. Karlos Hogan et al. EDEL Cardiol. 2020 June 20;5(5):540-548. doi: [...] CDT 06/26/2024 12:25 PM CDT Narrative [facility] - 06/26/2024 1:16 PM CDT Has the patient been fasting for 8 hours or more?->Yes Pavan Dooley MD LAB BLOOD ORDERABLES Final Resul t Performing Organization Address [facility]/ZIP Co de Phone Number [facility] [address] [facility] [place] [address] * Comprehensive metabolic panel (06/26/2024 11:29 AM CDT) Sodium 140 135 - 145 mmol/L Potassium, pl 3.7 3.3 - 4.9 mmol/L [facility] Chloride 100 97 - 110 mmol/L [facility] CO2 27 22 - 32 mmol/L [facility] Anion gap 13 2 - 15 mmol/L [facility] BUN 17 6 - 25 mg/dL [facility] Creatinine 0.86 0.60 - 1.10 mg/dL [facility] Glucose 108 70 - 199 mg/dL [facility] Comment: Interpretive Data Fasting glucose >/= [...] 2022. Calcium 9.9 8.5 - 10.3 mg/dL [facility] Bilirubin, total 0.4 0.1 - 1.2 mg/dL [facility] Protein, pl 7.3 6.5 - 8.5 g/dL [facility] Albumin 4.4 3.5 - 5.0 g/dL [facility] Alk phos 80 40 - 130 Units/L [facility] ALT 19 7 - 45 Units/L [facility] AST 17 10 - 45 Units/L [facility] Blood 06/26/2024 11:2 9 AM CDT 06/26/2024 12:25 PM CDT Pavan Dooley MD LAB BLOOD ORDERABLES Final Resul t Performing Organization Address City/[facility]/ZIP Co de Phone Number CASTR[facility] [address] Department [place] [address] * (ABNORMAL) POCT hemoglobin A1c (06/26/2024 10:40 AM CDT) Pathologist [facility] Hemoglobin A1C, POC 6.6(A) 4.0 - 5.6 % Blood 06/26/2024 10:4 0 AM CDT Result [facility] Pavan Dooley MD POINT OF CARE TEST ORDERABLES Fi nal Result * Screening Mammogram (05/29/2024) Anatomical Region Laterality Modality Breast N/A Mammography 05/29/2024 Result [facility] Historical Yun MURILLO MAMMO PROCEDURES Victoria l Result * Dexa Axial Skeleton Bone Density 1 or 2 Site (05/29/2024) Anatomical Region Laterality Modality Body N/A Radiographic Rosa ging 05/29/2024 Result [facility] Yun MURILLO DXA PROCEDURES Edited Result - Final * Diabetic Eye Exam (03/29/2023) Result [facility] Harvinder Malcolm MD HEALTH MAINTENANCE Final Result * Hepatitis C antibody Blood (12/02/2022 11:13 AM CDT) [facility] Hep C Ab Nonreactive Nonreactive Comment: Interpretive [...] - GENERAL ORDER REAL Final Result [facility] [address] [facility] Department [place] [address] * (ABNORMAL) Colonoscopy (09/29/2021) Anatomical Region Laterality Modality Other Historical Provider ENDOSCOPY PROCEDURES Victoria l Result from Last 3 Months or Most Recently Relevant to Health Maintenance Insurance [employer] [place] [employer] Advance Directives For more information, please contact: [phone] * Full Code (Latest Code Status on File) Date Activated Date Inactivated Comments 08/16/2023 6:14 PM 08/22/2023 9:06 PM Care Teams Automobile Sales Representative Relationship Specialty Start Date End Date Pavan Dooley MD PCP - General Family Medicine 06/14/19 Lita Whitlock MD [address] [address] Referring Physician Cardiovascular Disease 06/15/22 Abhay Garcia, DPEdison [address] [place] [address] Consulting Physician Podiatry 06/15/22 Juan Dumont MD [address] [place] [phone] Referring Physician Hematology 06/15/22
--- OUTSIDE RECORDS SUMMARY | 2024-09-11 10:45 | XMS_ITS | Encounter Summary ---
Author Organization [facility] [employer] [facility] Address [address] [place] [address] Care Team Providers Care Dianeticist Name Role Phone Pavan Dooley MD Primary Care Provider [phone] Encounter Details Date Type Department Care Team ([facility] Contact Info) Description 09/04/2024 Orders Only [facility] [address] [place] [address] Juan Dumont MD [facility] [employer] [address] [place] [phone] Social History Tobacco Use Types Packs/Day [...] Description 09/15/2025 10:15 AM CDT Office Visit [facility] [place] [address] [place] [address] Juan Dumont MD [address] [employer] [address] [place] [phone] documented as of this encounter Procedures Procedure Name Priority Date/Time Associated Diagnosis Comments CBC WITH DIFFERENTIAL Routine 09/04/2024 2:03 PM CDT documented in this encounter Results * CBC WITH DIFFERENTIAL (09/04/2024 2:03 PM CDT) Blood us Juan Dumont MD HEMATOLOGY ORDERABLES Final Res ult documented in this encounter Visit Diagnoses Not on filedocumented in this encounter Care Teams Dianeticist Relationship Specialty Start Date End Date Pavan Dooley MD [address] [place] [phone] PCP - General Family Practice 03/03/21 documented as of this encounter
--- OUTSIDE RECORDS SUMMARY | 2024-09-11 10:45 | XMS_ITS | Referral Summary ---
Author Organization [facility] Building Address [address] [place] [address] Care Team Providers Care Policy Analyst Name Role Phone Pavan Dooley MD Primary Care Provider [phone] Lita Whitlock MD Unavailable [phone] Abhay Garcia DPM Unavailable [phone] Juan Dumont MD Unavailable [phone] Encounters Date Type Department Care Team Description 06/28/2024 Telephone [facility] Medical [facility] Family Medicine at [address] [place] [address] Pavan Dooley MD Labs Only 06/26/2024 Results Follow-Up [facility] Family Medicine at [address] [place] [address] Pavan Dooley MD TSH, Comprehensive metabolic panel, CBC with auto differential, Additional followed-up results: 4 06/26/2024 11:10 AM CDT Lab [facility] [address] [place] [address] [address] [place], [place] [id number] Encounter for annual health examination; Type 2 diabetes mellitus without complication, without long-term current use of insulin (HCC) 06/26/2024 10:15 AM CDT Office Visit [facility] Family Medicine at [address] [place] [phone] Pavan Dooley MD Medicare annual wellness visit, subsequent (Primary Dx); Encounter for annual health examination; Type 2 diabetes mellitus without complication, without long-term current use of insulin (HCC); Mixed hyperlipidemia; Essential hypertension; Other persistent atrial fibrillation (HCC); Chronic diastolic congestive heart failure (HCC); Hypothyroidism, unspecified type from Last 3 Months Allergies Active Allergy [...] by mouth daily 90 tablet 3 06/27/19 026 Active amLODIPine (NORVASC) 5 mg tabletIndications: Essential hypertension Take 1 tablet (5 mg total) by mouth daily 30 tablet 11 06/27/19 Active Eliquis 5 mg tabletIndications: Other persistent [...] by mouth daily 30 tablet 11 06/27/19 026 Active levothyroxine (SYNTHROID) 25 mcg tabletIndications: [...] visit. Personalized Prevention Plan Services (PPPS): Immunization: [id number]: Risk and benefits discussed with patient. Patient voiced understandings; and refused. [id number]: ordered today. Influenza: Risk and benefits discussed with patient. Patient voiced understandings; and refused. HepatitisB: Not Applicable. Tetanus: 2019 Shingles: Risk and benefits discussed with patient. Patient voiced understandings; and refused. Cancer Screening: Mammogram: UTD. and Annually January . PAP Smear: Not Applicable. Prostate Cancer Screening: UTD. Colorectal Cancer Screening: Dr. Aguirre. [facility] Lung Cancer Screening: Not Applicable. Others: Diet: [...] visit. Personalized Prevention Plan Services (PPPS): Immunization: [id number]: Risk and benefits discussed with patient. Patient voiced understandings; and refused. [id number]: ordered today. Influenza: Risk and benefits discussed with patient. Patient voiced understandings; and refused. HepatitisB: Not Applicable. Tetanus: 2019 Shingles: Risk and benefits discussed with patient. Patient voiced understandings; and refused. Cancer Screening: Mammogram: UTD. and Annually January . PAP Smear: Not Applicable. Prostate Cancer Screening: UTD. Colorectal Cancer Screening: Dr. Aguirre. [facility] Lung Cancer Screening: Not Applicable. Others: Diet: [...] visit. Personalized Prevention Plan Services (PPPS): Immunization: [id number]: Risk and benefits discussed with patient. Patient voiced understandings; and refused. [id number]: ordered today. Influenza: Risk and benefits discussed [...] the plan were completed as outlined by [facility]. A copy of the prevention plan was [...] visit. Personalized Prevention Plan Services (PPPS): Immunization: [id number]: Risk and benefits discussed with patient. Patient voiced understandings; and refused. [id number]: ordered today. Influenza: Risk and benefits discussed [...] Annually Assessment & Plan (04/29/2020 9:42 AM SANITATION SUPERVISOR): Patient here for annual Medicare wellness visit [...] visit. Personalized Prevention Plan Services (PPPS): Immunization: [id number]: Risk and benefits discussed with patient. Patient voiced understandings; and refused. [id number]: ordered today. Influenza: Risk and benefits discussed with patient. Patient voiced understandings; and refused. HepatitisB: Not Applicable. Tetanus: Ordered For Today. Shingles: Risk and benefits discussed with patient. Patient voiced understandings; and refused. Cancer Screening: Mammogram: UTD. and Annually January . PAP Smear: Not Applicable. Prostate Cancer Screening: UTD. Colorectal Cancer Screening: Dr. Hurtado UTD. Lung Cancer Screening: Not Applicable. Others: [...] Annually Assessment & Plan (04/24/2019 10:02 AM SANITATION SUPERVISOR): Patient here for annual Medicare wellness visit and for review of complete medical problem list. All the elements of the plan were completed as outlined by [facility]. A copy of the prevention plan was [...] visit. Personalized Prevention Plan Services (PPPS): Immunization: [id number]: Risk and benefits discussed with patient. Patient voiced understandings; and refused. [id number]: Risk and benefits discussed with patient. Patient [...] drink = 0.6 oz pur e alcohol) [facility] [employer] Answer Date Recorded In the past 12 months has [employer], oil, or water [employer] threatened to shut off services in your [...] week 08/17/2023 How often do you attend [facility] or adventist services? Never 08/17/2023 Do you belong to any clubs o r organizations such as mandaen groups, unions, fraternal or athletic groups, or [...] any time in the past 12 [facility], were you homeless or living in a skilled nursing (including now)? No 08/17/2023 Personal Safety Answer Date Recorded Have you ever been in or are you currently in a harmful physical or emotional relationship or is someone making you feel afraid or unsafe? Denies 08/16/2023 Comments No Sex and Gender Information Value Date Recorded Sex Assigned at Not on file Legal Sex Female 7:56 AM SANITATION SUPERVISOR Gender Identity Not on file Sexual Orientation [...] MD LAB BLOOD ORDERABLES Final Resul t [id number] [address] [facility] Department [place] [address] * Differential, auto (06/26/2024 11:29 AM CDT) Pathologist [facility] Neutrophil abs 3.98 1.50 - 6.50 K/cumm Imm gran abs 0.01 0.00 - 0.10 K/cumm [facility] Lymphocyte abs 1.73 0.80 - 3.30 K/cumm [facility] Monocyte abs 0.45 0.20 - 0.80 K/cumm [facility] Eosinophil abs 0.04 0.00 - 0.50 K/cumm [facility] Basophil abs 0.03 0.00 - 0.10 K/cumm [facility] Neutrophil pct 63.8 % [facility] Comment: Interpretive Data Percent cell count reference ranges are not reported, since discordance with absolute values may lead to misinterpretation of CBC data. Current Interpretive Data was last revised on 2017. Imm gran pct 0.2 % [facility] Comment: Interpretive Data Percent cell count reference ranges are not reported, since discordance with absolute values may lead to misinterpretation of CBC data. Current Interpretive Data was last revised on 2017. Lymphocyte pct 27.7 % [facility] Comment: Interpretive Data Percent cell count reference ranges are not reported, since discordance with absolute values may lead to misinterpretation of CBC data. Current Interpretive Data was last revised on 2017. Monocyte pct 7.2 % [facility] Comment: Interpretive Data Percent cell count reference ranges are not reported, since discordance with absolute values may lead to misinterpretation of CBC data. Current Interpretive Data was last revised on 2017. Eosinophil pct 0.6 % [facility] Comment: Interpretive Data Percent cell count reference ranges are not reported, since discordance with absolute values may lead to misinterpretation of CBC data. Current Interpretive Data was last revised on 2017. Basophil pct 0.5 % [facility] Comment: Interpretive Data Percent cell count reference ranges are not reported, since discordance with absolute values may lead to misinterpretation of CBC data. Current Interpretive Data was last revised on 2017. Blood 06/26/2024 11:2 9 AM CDT 06/26/2024 12:27 PM CDT Pavan Dooley MD LAB BLOOD ORDERABLES Final Resul t Performing Organization Address [facility] de Phone Number [facility] [address] [address] * (ABNORMAL) CBC with auto differential (06/26/2024 11:29 AM CDT) [facility] WBC 6.24 3.80 - 9.90 K/cumm Hgb 12.5 11.9 - 15.5 g/dL [facility] Hct 38.8 35.6 - 45.5 % [facility] Plt 254 150 - 400 K/cumm [facility] MPV 12.4(H) 9.1 - 12.3 fL [facility] RBC 4.24 3.90 - 5.20 M/cumm [facility] MCV 91.5 81.3 - 96.4 fL [facility] MCH 29.5 27.1 - 33.3 pg [facility] MCHC 32.2(L) 32.3 - 35.7 g/dL [facility] RDW CV 12.8 11.1 - 14.9 % [facility] RDW SD 42.7 35.7 - 48.1 fL [facility] NRBC abs 0.00 0.00 - 0.01 K/cumm [facility] Blood 06/26/2024 11:2 9 AM CDT 06/26/2024 12:27 PM CDT Pavan Dooley MD LAB BLOOD ORDERABLES Final Resul t Performing Organization Address [facility] Co de Phone Number [address] [place] [address] * Albumin Creatinine Ratio, Urine (06/26/2024 11:29 AM CDT) [facility] Albumin Ur <12.0 mg/L Comment: Note corrected result. Notified Shante [id number] on 06/28/2024 11:55:12 CDT by [email or web address]. Interpretive Data No reference range established. Current interpretive data was last revised 2018. Creatinine Ur 71.5 mg/dL [facility] Comment: Interpretive Data No reference range established. Current interpretive data was last revised 2018. Albumin Creatinine Ratio, Ur <17 1 - 29 mg/g [facility] Comment:Note corrected resul t. Notified Shante [id number] on 06/28/2024 11:55:12 CDT by [id number]. Urine 06/26/2024 11:2 9 AM CDT 06/26/2024 12:40 PM CDT Pavan Dooley MD LAB URINE ORDERABLES Edited Resu lt - Final Performing Organization Address City/[facility]/ZIP Co de Phone Number [address] [place] [address] * TSH (06/26/2024 11:29 AM CDT) Thyroid Stimulating Hormone 3.01 0.30 - 4.20 mcIUnit/mL Blood 06/26/2024 11:2 9 AM CDT 06/26/2024 12:25 PM CDT Pavan Dooley MD LAB BLOOD ORDERABLES Final Resul t Performing Organization Address [facility] Co de Phone Number [address] [place] [address] * Lipid panel (06/26/2024 11:29 AM CDT) [...] on 2017. HDL 47 >=40 mg/dL [facility] Comment: Interpretive Data Ages [...] revised on 2023. Non-HDL Cholesterol 147 mg/dL [facility] Comment: Interpretive Data Ages < or = [...] last revised on 2017. Chol/HDL ratio 4 [facility] Blood 06/26/2024 11:2 9 AM CDT 06/26/2024 12:25 PM CDT Narrative [facility] - 06/26/2024 1:16 PM CDT Has the patient been fasting for 8 hours or more?->Yes us Pavan Dooley MD LAB BLOOD ORDERABLES Final Resul t [facility] [address] [facility] Department of Laboratories [place], [place] [id number] * Comprehensive metabolic panel (06/26/2024 11:29 AM CDT) Sodium 140 135 - 145 mmol/L Potassium, pl 3.7 3.3 - 4.9 mmol/L [facility] Chloride 100 97 - 110 mmol/L [facility] CO2 27 22 - 32 mmol/L [facility] Anion gap 13 2 - 15 mmol/L [facility] BUN 17 6 - 25 mg/dL [facility] Creatinine 0.86 0.60 - 1.10 mg/dL [facility] Glucose 108 70 - 199 mg/dL [facility] Comment: Interpretive Data Fasting glucose [...] 2022. Calcium 9.9 8.5 - 10.3 mg/dL [facility] Bilirubin, total 0.4 0.1 - 1.2 mg/dL [facility] Protein, pl 7.3 6.5 - 8.5 g/dL [facility] Albumin 4.4 3.5 - 5.0 g/dL [facility] Alk phos 80 40 - 130 Units/L [facility] ALT 19 7 - 45 Units/L [facility] AST 17 10 - 45 Units/L [facility] Blood 06/26/2024 11:2 9 AM CDT 06/26/2024 12:25 PM CDT Pavan Dooley MD LAB BLOOD ORDERABLES Final Resul t [place] [id number] [facility] Department [place] [address] * (ABNORMAL) POCT hemoglobin A1c (06/26/2024 10:40 AM CDT) Hemoglobin A1C, POC 6.6(A) 4.0 - 5.6 % Blood 06/26/2024 10:4 0 AM CDT Result [facility] Pavan Dooley MD POINT OF CARE TEST ORDERABLES Fi nal Result * Screening Mammogram (05/29/2024) Anatomical Region Laterality Modality Breast N/A Mammography 05/29/2024 Historical Provider MD MURILLO MAMMO PROCEDURES [place] l Result * Dexa Axial Skeleton Bone Density 1 or 2 Site (05/29/2024) Anatomical Region Laterality Modality Body N/A Radiographic Rosa ging 05/29/2024 Historical Provider MD IMG DXA PROCEDURES Edited Result - Final * Diabetic Eye Exam (03/29/2023) Historical Provider HEALTH MAINTENANCE Final Result * [...] MICROBIOLOGY - GENERAL ORDER REAL Final Result [facility] [address] [facility] Department [place] [address] * (ABNORMAL) Colonoscopy (09/29/2021) Anatomical Region Laterality Modality Other Result [facility] Historical Provider ENDOSCOPY PROCEDURES [place] l Result from Last 3 Months or Most Recently Relevant to Health Maintenance Insurance [employer] MEDIC[employer] PPO FOR LIFE [employer] MEDIC[employer] PPO FOR LIFE Advance Directives For more information, please contact: [phone] * Full Code (Latest Code Status on File) Date Activated Date Inactivated Comments 08/16/2023 6:14 PM 08/22/2023 9:06 PM Care Teams Policy Analyst Relationship Specialty Start Date End Date Pavan Dooley MD PCP - General Family Medicine 06/14/19 [place] [address] Referring Physician Cardiovascular Disease 06/15/22 Abhay Garcia, DPM [address] [place] [address] Consulting Physician Podiatry 06/15/22 Juan Dumont MD [address] [place] [address] Referring Physician Hematology 06/15/22
--- OUTSIDE RECORDS SUMMARY | 2024-09-11 10:45 | XMS_ITS | Clinical Summary ---
Author Organization [facility] Address [address] [place] [address] Care Team Providers Care Human Relations Teacher Name Role Phone Pavan Dooley MD Primary Care Provider [phone] Allergies Active Allergy Reactions Criticality Noted Date Comments Amoxicillin-Pot Clavulanate Rash Medium 08/02/19 18 Aspirin Anaphylaxis High 02/23/2005 anaphylaxis Nsaids (Non-Steroidal Anti-Inflammatory Drug) Anaphylaxis High 03/02/2016 Pepper (Genus Capsicum) Anaphylaxis High 03/10/2016 Salicylates Anaphylaxis High 03/02/2016 Vancomycin Rash Low 07/19/2016 Medications multivitamin (DAILY-OSCAR) tablet Take 1 Tablet by mouth daily. Active spironolactone (ALDACTONE) 25 mg tablet Take 25 mg by mouth daily. Active apixaban (ELIQUIS) 5 mg tablet Take 5 mg by mouth 2 times daily. Active atorvastatin (LIPITOR) 40 mg tablet Take 40 mg by mouth late in the day. Active fexofenadine (KARINA) 180 mg tablet Take 180 mg by mouth daily. Active omeprazole (PriLOSEC) 20 mg Capsule, Delayed Release(E.C.) Take 20 mg by mouth daily. Active calcium as carbonate (CALTRATE) 1,500 mg (600 mg elemental) Tablet Take 600 mg by mouth daily. Active furosemide (LASIX) 40 mg tablet 40 mg. Take 1.5 tabs daily 8 Active levothyroxine 50 mcg tablet Take 50 mcg by mouth daily coil assembler. Active EPINEPHrine (EPIPEN) 0.3 mg/0.3 mL Auto-Injector Inject 1 Syringe by intramuscular injection. Active losartan (COZAAR) 100 mg tablet Take 100 mg by mouth. 0 Active fenofibrate (LOFIBRA) 160 mg Tablet 0 Active ascorbic acid (VITAMIN C) 500 mg Tablet, Chewable Take 500 mg by mouth daily. Active biotin 1 mg Capsule Take 1,000 mcg by mouth daily. Active sotaloL (BETAPACE) 80 mg tablet 4 Active amLODIPine (NORVASC) 5 mg tablet Take 5 mg by mouth daily. 4 026 Active amLODIPine (NORVASC) 5 mg tablet Take 5 mg by mouth daily. 4 025 empagliflozin (JARDIANCE) 25 mg tablet Take 25 mg by mouth daily. 4 025 metFORMIN (GLUCOPHAGE) 850 mg tablet Take 850 mg by mouth 2 times daily. 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 07/19/2016 Encounters Date Type Department Care Team Description 09/11/2024 10:00 AM CDT Office Visit [facility] On[facility] and Hematology - [place] [address] [place] [address] Juan Dumont MD Malignant neoplasm of upper-inner quadrant of left female breast, unspecified estrogen receptor status (CMS/HCC) (Primary Dx); Visit for screening mammogram 09/06/2024 Orders Only [facility] [address] [place] [address] Juan Dumont MD 09/04/2024 External Device Data STL ABSTRACTION Provider, Abstract 09/04/2024 Orders Only [facility] [place] [address] [place] [address] Juan Dumont MD 09/03/2024 External Device Data ST[facility] ABSTRACTION Provider, Abstract 08/13/2024 External Device Data ST[facility] ABSTRACTION Provider, Abstract 07/09/2024 External Device Data ST[place] ABSTRACTION Provider, Abstract from Last 3 Months Family History Medical History Relation Name Comments Colon Cancer Brother Hypertension Brother Heart Disease Father Cancer Mother Hypertension Sister 1 Hypertension Sister 2 Hypertension Sister 3 Relation Name Status Comments Brother Alive Father Mother Alive Sister 1 Alive Sister 2 Alive Sister 3 Alive Social History Tobacco Use Types Packs/Day Years Used Date Smoking Tobacco: Former Cigarettes 3 10 1 987 - 1997 Smokeless Tobacco: Never Tobacco Cessation:Counseling Given: Not [...] Sign Reading Time Taken Comments Blood Pressure 136/77 09/11/2024 9:54 AM CDT Pulse 64 09/11/2024 9:54 AM CDT Temperature 36.4 C (97.5 F) 09/11/2024 9:54 AM CDT Respiratory Rate 16 09/11/2024 9:54 AM CDT Oxygen Saturation 96% 09/11/2024 9:54 AM CDT Inhaled Oxygen Concentration - - Weight 105.4 kg (232 lb 6.4 oz) 025 9:54 AM CDT Height 180.3 cm (5' 11) 11/01/2021 10: 25 AM CDT Body Mass Index 32.41 11/01/2021 10:25 AM CDT Plan of Treatment Upcoming Encounters Date Type Department Care Team (Late st Contact Info) Description 09/15/2025 10:15 AM CDT Office Visit [facility]ology - [place] [address] [facility] [address] [place] [address] Juan Dumont MD [address] [facility] [address] [place] [address] Health Maintenance Due Date Last Done Comments DIABETES ANNUAL RETINAL EXAM 1972 DIABETES MICROALBUMIN ANNUAL SCREEN 1972 LDL CHOLESTEROL ANNUAL 1972 FIT-DNA Q 3 years 1999 FIT/FOBT Q 1 year 1999 Flex Sig/CT Colonography Q 5 years 1999 ZOSTER VACCINE (2 of 3) 08/16/2016 06/22/19 17, 06/16/2016, 05/26/2016, Additional history exists DIABETES ANNUAL FOOT EXAM 03/14/2023 03/14/2022 Medicare Advantage (OR) Preventative Visit/Annual Wellness Visit 02/21/2024 INFLUENZA VACCINE (#1) 2024 DIABETES HBA1C Q 6 MONTHS 12/27/20242024, 06/23/2023, 06/15/2022, Additional history exists BREAST CANCER SCREENING 05/29/2025 05/30/19 25, 05/29/2024, 05/29/2023, Additional history exists RSV VACCINE (60+ or ) (1 - 1-dose 75+ series) 2029 DTAP/TDAP/TD VACCINES (2 - T d or Tdap) 04/23/2029 04/24/2019 OSTEOPOROSIS SCREENING 05/29/2029 5, 05/29/2024, 01/19/2022, Additional history exists COLORECTAL SCREENING 09/30/2031 09/29/2021 Colorectal Cancer Screening 09/30/2031 PNEUMOCOCCAL VACCINE 50+ YEARS Completed 06/23/2023 , 06/15/2021 Procedures Procedure Name Priority Date/Time Associated Diagnosis Comments COMPREHENSIVE METABOLIC PANEL Routine 09/04/2024 2:47 PM CDT CANCER ANTIGEN 15-3 Routine 09/04/2024 2 :13 PM CDT CBC WITH DIFFERENTIAL Routine 09/04/2024 2:03 PM CDT MAMMO BILAT DIAGNOSTIC Routine 01/22/2018 from Last 3 Months or Most Recently Relevant to Health Maintenance Results * COMPREHENSIVE METABOLIC PANEL (09/04/2024 2:47 PM CDT) Blood Juan Dumont MD CHEMISTRY ORDERABLES Final Resu lt * CANCER ANTIGEN 15-3 (09/04/2024 2:13 PM CDT) Blood Juan Dumont MD CHEMISTRY ORDERABLES Final Resu lt * CBC WITH DIFFERENTIAL (09/04/2024 2:03 PM CDT) Blood Juan Dumont MD HEMATOLOGY ORDERABLES Final Res ult * MAMMO BILAT DIAGNOSTIC (01/22/2018) Anatomical Region Laterality Modality Breast Bilateral Mammography us Abstract Provider MAMMO ORDERABLES Final Result from Last 3 Months or Most Recently Relevant to Health Maintenance Insurance [facility] [email or web address] [facility] Care Teams Human Relations Teacher Relationship Specialty Start Date End Date Pavan Dooley MD [address] [place] [phone] PCP - General Family Practice 03/03/21
--- OUTSIDE RECORDS SUMMARY | 2024-09-11 10:45 | XMS_ITS | Encounter Summary ---
Author Organization [facility] [employer] [facility] Address [address] [place] [address] Care Team Providers Care Tube Sorter Name Role Phone Pavan Dooley MD Primary Care Provider [phone] Reason for Referral * Radiology Services (Routine) - Authorized Specialty Diagnoses / Procedures Referred By Contac t Referred To Contact Diagnoses Visit for screening mammogram Procedures MAMMO 3D CALIN SCREEN BILAT W OR WO CAD CHG SCREENING MAMMOGRAPHY BI 2-VIEW BREAST INC CAD CHG SCREENING DIGITAL BREAST TOMOSYNTHESIS BI Juan Dumont MD [address] [place] [id number] Phone: tel: fax: Referral ID Status Reason Start Date Expiration Date V isits Requested Visits Authorized [id number] Authorized 09/11/2024 10/12/2025 1 1 Encounter Details Date Type Department Care Team (Late st Contact Info) Description 09/11/2024 10:00 AM CDT Office Visit [facility] - Nino Gabriela Pulido [facility] [address] [place] [address] Juan Dumont MD [address] [place] [address] Malignant neoplasm of upper-inner quadrant of left female breast, unspecified estrogen receptor status (CMS/HCC) (Primary Dx); Visit for screening mammogram Social History Tobacco Use Types Packs/Day Years Used Date Smoking Tobacco: Former Cigarettes 3 10 1 987 - 1996 Smokeless Tobacco: Never Tobacco Cessation:Counseling Given: Not Answered Alcohol Use Standard Drinks/Week Comments Yes 0 (1 standard drink = 0.6 oz pur e alcohol) occasional Comments No Sex and Gender Information Value Date Recorded Sex Assigned at Not on file Legal Sex Female 10:46 AM CDT Gender Identity Not on file Sexual Orientation Not on file documented as of this encounter Last Filed Vital Signs Vital Sign Reading Time Taken Comments Blood Pressure 136/77 09/11/2024 9:54 AM CDT Pulse 64 09/11/2024 9:54 AM CDT Temperature 36.4 C (97.5 F) 09/11/2024 9:54 AM CDT Respiratory Rate 16 09/11/2024 9:54 AM CDT Oxygen Saturation 96% 09/11/2024 9:54 AM CDT Inhaled Oxygen Concentration - - Weight 105.4 kg (232 lb 6.4 oz) 09/11/2024 9:54 AM CDT Height - - Body Mass Index 32.41 11/01/2021 10:25 AM CDT documented in this encounter Plan of Treatment Upcoming Encounters Date Type Department Care Team (Late st Contact Info) Description 09/15/2025 10:15 AM CDT Office Visit [facility] [address] [place] [address] [facility] [address] [place] [address] Juan Dumont MD [address] [facility] [address] [place] [address] Scheduled Orders Name Type Priority Associated Diagnoses Orde r Schedule CBC WITH DIFFERENTIAL Lab Stat Malignant neoplasm of upper-inner quadrant of left female breast, unspecified estrogen receptor status (CMS/HCC) Expected: 09/11/2025, Expires: 12/10/2025 COMPREHENSIVE METABOLIC PANEL Lab Stat Malignant neoplasm of upper-inner quadrant of left female breast, unspecified estrogen receptor status (CMS/HCC) Expected: 09/11/2025, Expires: 12/10/2025 CANCER ANTIGEN 15-3 Lab Routine Malignant neoplasm of upper-inner quadrant of left female breast, unspecified estrogen receptor status (CMS/HCC) Expected: 09/11/2025, Expires: 12/10/2025 MAMMO 3D CALIN SCREEN BILAT W OR WO CAD Imaging Routine Visit for screening mammogram Expected: 06/12/2025, Expires: 03/14/2026 documented as of this encounter Visit Diagnoses Diagnosis Malignant neoplasm of upper-inner quadrant of left female breast, unspecified estrogen receptor status (CMS/HCC)- Primary Visit for screening mammogram Other screening mammogram documented in this encounter Care Teams Tube Sorter Relationship Specialty Start Date End Date Pavan Dooley MD [address] [place] [phone] PCP - General Family Practice 03/03/21 documented as of this encounter
--- OUTSIDE RECORDS SUMMARY | 2024-09-11 10:45 | XMS_ITS ---
Author Organization [facility] Address [address] [place] [address] Care Team Providers Care Director Of Academic Support Name Role Phone Pavan Dooley MD Primary Care Provider [phone] Lita Whitlock MD Unavailable [phone] Abhay GarciaM Unavailable [phone] Juan Dumont MD Unavailable [phone] Active Problems Problem Noted Date Diagnosed [...] visit. Personalized Prevention Plan Services (PPPS): Immunization: [id number]: Risk and benefits discussed with patient. Patient voiced understandings; and refused. [id number]: ordered today. Influenza: Risk and benefits discussed [...] visit. Personalized Prevention Plan Services (PPPS): Immunization: [id number]: Risk and benefits discussed with patient. Patient voiced understandings; and refused. [id number]: ordered today. Influenza: Risk and benefits discussed [...] visit. Personalized Prevention Plan Services (PPPS): Immunization: [id number]: Risk and benefits discussed with patient. Patient voiced understandings; and refused. [id number]: ordered today. Influenza: Risk and benefits discussed [...] visit. Personalized Prevention Plan Services (PPPS): Immunization: [id number]: Risk and benefits discussed with patient. Patient voiced understandings; and refused. [id number]: ordered today. Influenza: Risk and benefits discussed with patient. Patient voiced understandings; and refused. HepatitisB: Not Applicable. Tetanus: UTD 2019 Shingles: Risk and benefits discussed with patient. Patient voiced understandings; and refused. Cancer Screening: Mammogram: UTD. and Annually January . PAP Smear: Not Applicable. Prostate Cancer Screening: UTD. Colorectal Cancer Screening: Dr. Aguirre. [place] Lung Cancer Screening: Not Applicable. 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 All the elements of the plan were completed as outlined by [facility]. A copy of the prevention plan was [...] visit. Personalized Prevention Plan Services (PPPS): Immunization: [id number]: Risk and benefits discussed with patient. Patient voiced understandings; and refused. [id number]: ordered today. Influenza: Risk and benefits discussed with patient. Patient voiced understandings; and refused. HepatitisB: Not Applicable. Tetanus: Ordered For Today. Shingles: Risk and benefits discussed with patient. Patient voiced understandings; and refused. Cancer Screening: Mammogram: UTD. and Annually January . PAP Smear: Not Applicable. Prostate Cancer Screening: UTD. Colorectal Cancer Screening: Dr. Aguirre. [place]. Lung Cancer Screening: Not Applicable. 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 All the elements of the plan were completed as outlined by [facility]. A copy of the prevention plan was [...] visit. Personalized Prevention Plan Services (PPPS): Immunization: [id number]: Risk and benefits discussed with patient. Patient voiced understandings; and refused. [id number]: Risk and benefits discussed with patient. Patient [...]
== END 2024-09-11 10:37 | disposition home or self-care (01) ==
PROVIDERS: PCP Family Medicine; Visit Provider Internal Medicine Hematology & Oncology
DX: C50.212 Malignant neoplasm of upper-inner quadrant of left female breast (principal)
CPT/HCPCS: 86300